=== PATIENT | male | born 1985 | race Caucasian/White ===

== ENCOUNTER 2018-08-03 08:16 | Inpatient (IN) | payer BC, MEDICAID, OTHER ==
[2018-08-03] VITALS (11 sets, daily range): BP systolic 126–192; BP diastolic 84–118
[~2018-08-03] VITALS: Ht 182.9 cm; Wt 107.8 kg
[2018-08-03] MEDS ORDERED: OXAZEPAM 15 MG CAP PO PRN (09:30)
[2018-08-03 09:53] LABS: ABG BASE EXCESS -19.4 (-2.0-2.0); ABG O2 SATURATION 98.1 % (95.0-99.0); ABG PARTIAL PRESSURE CO2 20.2 mmHg (35.0-45.0); ABG PARTIAL PRESSURE O2 105.2 mmHg (75.0-100.0); ABG STANDARD HCO3 10.9 MEQ/L (22.0-26.0); ABG TOTAL CO2 7.7 MEQ/L (22.0-29.0)
[2018-08-03] MEDS ORDERED: MULTIVITAMIN -ADULT INJECTION 10 ML, THIAMINE INJection 100 MG, FOLIC ACID 1 MG in NS 1... IV ONE (10:00)
[2018-08-03] MEDS ORDERED: NALBUPHINE HCL 10 MG/ML AMP (J2300) IV PRN (10:15)
[2018-08-03] MEDS ORDERED: NALOXONE INJ 0.4 MG/1 ML VIAL (J2310) IV PRN (10:15)
[2018-08-03] MEDS ORDERED: EPIDURAL/PCA KEYS XX PRN (10:15)
[2018-08-03] MEDS ORDERED: diphenhydrAMINE INJ 50MG/ML VIAL (J1200) IV PRN (10:15)
[2018-08-03 10:20] LABS: INR 1.07
[2018-08-03 10:21] LABS: PARTIAL THROMBOPLASTIN TIME 26.8 SECONDS (25.4-37.6)
[2018-08-03] MEDS: SODIUM BICARBONATE 325 MG TAB PO SCH ×4 (10:25→20:10)
[2018-08-03] MEDS ORDERED: MORPHINE 4 MG/ML 1ML VIAL/SYRINGE (J2270) IV ONE (10:30)
--- NOTE | 2018-08-03 10:32 | HPEPDOC ---
[facility] Medical History & Physical Date of Admission August 03, 2018 Attending Physician: DONATO COMER MD History and Physical CHIEF COMPLAINT: 2 day history of increasing abdominal pain HISTORY OF PRESENT ILLNESS: Patient is a 32-year-old white male, history of acute alcoholic pancreatitis, who presents to [facility] following transfer from [facility]'s emergency department which she presented to this morning at 0300 complaining of a 2 day history of increasing epigastric pain radiating to the back. He states that on the evening of 07/31/18 he consumed approximately 375 mL of vodka. The morning of 08/01/18 he began experiencing increasing epigastric pain with associated nausea and vomiting. Patient reports being unable to hold down food/water. He states that this pain feels similar to his previous episode of alcoholic acute pancreatitis which occurred approximately 6 years ago following consumption of a similar amount of vodka. He reports a prior history of daily alcohol abuse with significant reduction of the last 2 years drinking 34 evenings per week. At [facility], patient was given a 1 L bolus, Zofran for nausea and morphine 2 mg for pain. He was subsequently started on IV fluids at a rate of 125 miles per hour. His pain failed to improve and was given morphine IV push 4 mg. One half hour later, patient's pain remained present and he was given Dilantin 1 mg IVP. An abdominal CT was performed and indicated acute pancreatitis with peripancreatic free fluid. The pancreatic necrosis or pseudocyst. A CBC was performed and demonstrated an elevated white count of 19.3. CMP showed patient's glucose level being 293, potassium of 4.6 and anion gap of 31, AST/ALC of 36/71, total bilirubin of 0.8, and a lipase of 5958. Venous blood gas was performed which revealed a pH of 7.16 and a venous PCO2 of 21.3. Given patient's pancreatitis and superimposed metabolic acidosis, secondary to [facility] was contacted for transfer to higher level of care. Patient was accepted hospitalist team for further evaluation and management. PAST MEDICAL HISTORY: 1. History of Pancreatitis 6 years ago 2. Reports immunizations up to date PAST SURGICAL HISTORY: No surgical history SOCIAL HISTORY: Marital status: Single Tobacco use: every day tobacco cigarette smoker ETOH: Patient reports a history of daily ETOH use 2+ years ago. Reports current 3-4 times per week drinking to intoxication Illicit drug use: Occasional Marijuana use IV drug use: Denies history of IV drug use FAMILY HISTORY: Patient denies any penitent family history ALLERGIES: Please see below. REVIEW OF SYSTEMS: CONSTITUTIONAL: Denies history of fever, chills, night sweats, persistent/ongoing fatigue, or changes in weight HEENT: Denies headache, changes in vision, changes in hearing, difficulty swallowing CARDIOVASCULAR: No chest pain, discomfort, palpitations RESPIRATORY: Patient declined shortness of breath, history of cough/wheezing GASTROINTESTINAL: Patient reports persistent and increasing epigastric abdominal pain since 08/01/18. He reports nausea, vomiting and loss of appetite. He has been unable to keep food down because of this. His pain is increased with movement. He denies any difficulty stooling including diarrhea/constipation. He denies black or tarry school stools, hematemesis. He states that his symptoms are similar to when he was diagnosed with acute pancreatitis approximately 6 years ago after ranking a similar amount of vodka. GENITOURINARY: Denies any difficulty urinating SKIN: Denies any new rashes or changing/evolving skin lesions MUSCULOSKELETAL: Denies any muscle aches or pains, no difficulty ambulating NEUROLOGICAL: Denies headaches, dizziness, numbness or tingling in his hands or his feet PSYCHIATRIC: Patient denies any clinical history of depression/anxiety ENDOCRINE: Reports being diagnosed with diabetes 6 years ago following his last episode of acute pancreatitis. He states that he was started on metformin by his primary care provider and began 2 months of lifestyle modification, ultimately not requiring additional metformin use. HOME MEDICATIONS: Please see below. PHYSICAL EXAMINATION: VITAL SIGNS: Temperature 98.2, pulse 109, respiratory rate 20, blood pressure 144/88 (108), pulse oximetry 98% on room air. GENERAL APPEARANCE: Alert and oriented, appears to be visibly in discomfort but in no acute distress HEENT: Normocephalic, atraumatic, PERRLA, EOMI, sclera nonicteric, pharynx normal, Membranes dry CARDIOVASCULAR: Regular rate and rhythm, normal S1 and S2. No murmurs appreciated LUNGS: Fair air movement, clear to auscultation bilaterally ABDOMEN: Moderate tenderness in the epigastric region which radiates to the back. No guarding appreciated. No hepatosplenomegaly on exam EXTREMITIES: Able to move extremities equally and bilaterally, no limits in range of motion, no lower extremity edema or calf tenderness bilaterally NEUROLOGICAL: No focal neurologic deficits, no difficulty speaking or aphasia LABORATORY DATA: See below. [facility], patient had a blood gas, CBC with differential, CMP and lipase. Venous blood gas (08/03/18): Demonstrated a pH of 7.16, PCO2 21.3 CBC with differential (08/03/18): Demonstrated an elevated white count of 19.3 CMP (08/03/18): Glucose of 293, potassium of 4.6, anion gap of 31, AST/ALC of 36/71, total bilirubin of 0.8, lipase of 5958 IMAGING: Patient had an abdominal CT performed at [facility] (08/03/18): Acute pancreatitis with mild peripancreatic free fluid. No pancreatic necrosis or pseudocyst. Mild reactive thickening of the distal transverse colon and pericolonic fluid. Hepatic steatosis. ASSESSMENT: Patient is a 32-year-old white male who presents to [facility] via transfer from [facility] emergency department for higher level of care. Patient presented the morning of 08/03/18 at approximately 0300 complaining of epigastric pain and tenderness, radiates posteriorly, of 2 days' duration which began late Friday night after consuming 3.75 milliliters of vodka. In the emergency department, patient was found to have a lipase of approximately 6000, CT evidence of acute pancreatitis, white count of 19,000 and be in a metabolic acidosis with a pH of 7.16 and a CO2 of 10 via venous blood gas. PLAN: Acute pancreatitis likely secondary to alcohol abuse -Continue 2 L of IV saline bolus -Zofran IV for nausea -Morphine 4 mg IV Once, placement on Morphine drip for pain control -Clear liquid diet with plan to advance as tolerated History of ETOH abuse -Thiamine, folic acid and multivitamin supplementation -Serax 30 mg every 6 hours when necessary Leukocytosis -Procalcitonin level pending -Lactic acid level pending -Blood culture pending -U/A with culture pending Metabolic acidosis -Repeat arterial blood gas -Lactic acid, ammonia levels pending, r/o sepsis given patient's elevated white count -Sodium Bicarb ggt, at 250 mls/hr. Follow with serial BMPs, Magnesium level, and ionized calcium until levels normalize -PICC line insertion if bicarb cannot be run peripherally. -Sodium Bicarbonate 325 mg PO QID DAVI Hepatic steatosis -Bilirubin level from [facility] WNL, CMP pending to re-evaluate -PT/INR and PTT pending, denies recent Tylenol use. DVT PROPHYLAXIS Lovenox SubQ daily HOSPITALIST ATTENDING ADDENDUM: DR. COMER Hypertriglyceridemia: start on anti-hyperlipidemic agents. check apolipoprotein. Metabolic acidosis: no significant improvement despite iv bicarb gtt and po bicarb. defer to nephrology if further workup is warranted. Home Medications Scheduled Atorvastatin Calcium (Atorvastatin Calcium) 20 Mg Tablet, 40 MG PO QHS Blood Sugar Diagnostic (Advanced Glucose Test Strips) 1 Each Strip, 1 STRIP XX ASDIRECTED Fenofibrate,Micronized (Fenofibrate) 200 Mg Capsule, 200 MG PO DAILY Insulin Detemir (Levemir) 100 Unit/1 Ml Vial, 25 UNITS SC AMHS Insulin Human Lispro (Humalog) 100 Unit/1 Ml Vial, 0 UNITS SC AC 1 month supply As per in hospital sliding scale Insulin Human Lispro (Humalog) 100 Unit/1 Ml Vial, 0 UNITS SC QHS 1 month supply As per hospital sliding scale Allergies Coded Allergies: No Known Drug Allergies (Verified Allergy, Unknown, 08/03/18) A-FIB/CHADSVASC A-FIB History Current/History of A-Fib/PAF?: Yes GME ATTESTATION GME ATTESTATION My faculty preceptor for this patient encounter was physically present during the encounter and was fully available. All aspects of the patient interview, examination, medical decision making process, and medical care plan development were reviewed and approved by the faculty preceptor. The faculty preceptor is aware and concurs with the plan as stated in the body of this note and will attest to such by his/her cosignature. YOMAIRA CARMONA DO August 03, 2018 10:32 DONATO COMER MD August 03, 2018 16:19
[2018-08-03 10:55] LABS: BASO # 0.1 10^3/uL (0.0-0.2); BASO % 0.4 % (0.0-1.0); EOS % 0.2 % (0.0-3.0); HEMATOCRIT 43.5 % (42.0-52.0); HEMOGLOBIN 15.1 g/dl (13.5-17.5); LYMPH % 6.5 % (24.0-44.0); MEAN CORPUSCULAR HEMOGLOBIN 31.9 pg (27.0-33.0); MEAN CORPUSCULAR HGB CONC 34.7 g/dl (32.0-36.5); MEAN CORPUSCULAR VOLUME 91.8 fl (80.0-96.0); MONO # 1.6 10^3/uL (0.0-0.8); MONO % 10.9 % (0.0-5.0); NEUTROPHILS # 11.9 10^3/uL (1.8-7.7); PLATELET COUNT, AUTOMATED 162 10^3/uL (150-450); RED BLOOD COUNT 4.74 10^6/uL (4.30-6.10); WHITE BLOOD COUNT 14.6 10^3/uL (4.0-10.0)
[2018-08-03] MEDS: SODIUM BICARBONATE 150 MEQ in STERILE WATER LITER BAG 1,000 ML IV SCH ×2 (11:20→15:41)
[2018-08-03] MEDS: MORPHINE 1MG/ML IN 0.9% NACL 100ML IV BAG IV PRN (12:15)
[2018-08-03] MEDS: MULTIVITAMINS/MINERALS THERAP 1 TAB PO SCH (12:17)
[2018-08-03] MEDS: FOLIC ACID 1 MG TAB PO SCH (12:17)
[2018-08-03] MEDS: THIAMINE 100 MG TAB PO SCH (12:17)
[2018-08-03] MEDS: ENOXAPARIN 40 MG/0.4 ML SYRINGE (J1650) SC SCH (12:18)
[2018-08-03 12:33] LABS: ALBUMIN 3.4 GM/DL (3.2-5.2); ALT/SGPT 54 U/L (12-78); AMYLASE 634 U/L (25-115); BILIRUBIN,TOTAL 1.4 MG/DL (0.2-1.0); BLOOD UREA NITROGEN 6 MG/DL (7-18); CALCIUM LEVEL 7.3 MG/DL (8.5-10.1); CARBON DIOXIDE LEVEL 9 MEQ/L (21-32); CHLORIDE LEVEL 102 MEQ/L (98-107); CHOLESTEROL LEVEL 287 MG/DL (<200); CHOLESTEROL RISK RATIO 6.674 (<5); CK-MB VALUE MASS < 1.0 NG/ML (<3.6); CPK CREATINE PHOSPHOKINASE 121 U/L (39-308); CREATININE FOR GFR 0.86 MG/DL (0.70-1.30); GLOMERULAR FILTRATION RATE > 60.0 (>60); GLUCOSE, FASTING 281 MG/DL (70-100); HDL CHOLESTEROL 43 MG/DL (>40); LIPASE 5721 U/L (73-393); MAGNESIUM LEVEL 1.9 MG/DL (1.8-2.4); MB/CK RELATIVE INDEX 0.83 (< OR =4); NON-HDL-C 244 MG/DL; POTASSIUM SERUM 4.2 MEQ/L (3.5-5.1); SODIUM LEVEL 129 MEQ/L (136-145); TOTAL PROTEIN 7.7 GM/DL (6.4-8.2); TRIGLYCERIDES LEVEL 4615 MG/DL (<150); TROPONIN I < 0.02 NG/ML (< 0.10)
[2018-08-03] MEDS ORDERED: NS 1,000 ML IV SCH ×2 (14:03→20:12)
[2018-08-03 15:27] LABS: IONIZED CALCIUM 4.5 MG/DL (4.5-5.3)
[2018-08-03 15:30] LABS: ABG HCO3 7.1 MEQ/L (22.0-26.0); ABG O2 SATURATION 97.9 % (95.0-99.0); ABG PARTIAL PRESSURE O2 101.7 mmHg (75.0-100.0); ABG STANDARD HCO3 11.1 MEQ/L (22.0-26.0); ABG TOTAL CO2 7.7 MEQ/L (22.0-29.0)
[2018-08-03 15:31] LABS: ABG pH (ARTERIAL) 7.172 UNITS (7.350-7.450)
[2018-08-03 15:32] LABS: ABG PARTIAL PRESSURE CO2 19.9 mmHg (35.0-45.0)
[2018-08-03 15:55] LABS: BLOOD UREA NITROGEN 5 MG/DL (7-18); CARBON DIOXIDE LEVEL 10 MEQ/L (21-32); CHLORIDE LEVEL 99 MEQ/L (98-107); CREATININE FOR GFR 0.93 MG/DL (0.70-1.30); GLOMERULAR FILTRATION RATE > 60.0 (>60); GLUCOSE, FASTING 297 MG/DL (70-100); MAGNESIUM LEVEL 2.1 MG/DL (1.8-2.4); POTASSIUM SERUM 4.3 MEQ/L (3.5-5.1); SODIUM LEVEL 128 MEQ/L (136-145)
[2018-08-03] MEDS ORDERED: FENOFIBRATE 145 MG TAB (TRICOR) PO ONE (16:00)
[2018-08-03] MEDS: NIACIN 100 MG TAB PO SCH ×2 (16:34→20:10)
[2018-08-03 17:50] LABS: FREE THYROXINE INDEX 1.9 % (1.4-3.8); T UPTAKE 37 % (33-40); THYROXINE (T4) 5.1 UG/DL (4.5-12.0)
[2018-08-03] MEDS ORDERED: TAMSULOSIN 0.4 MG CAP PO ONE (18:00)
[2018-08-03 19:18] LABS: IONIZED CALCIUM 4.2 MG/DL (4.5-5.3)
[2018-08-03] MEDS: TAMSULOSIN 0.4 MG CAP PO SCH (20:10)
[2018-08-03] MEDS: ATORVASTATIN 20 MG TAB PO SCH (20:10)
[2018-08-03] MEDS ORDERED: SODIUM BICARBONATE 150 MEQ in STERILE WATER LITER BAG 1,000 ML IV SCH (20:11)
[2018-08-03 21:39] LABS: BLOOD UREA NITROGEN 6 MG/DL (7-18); CARBON DIOXIDE LEVEL 10 MEQ/L (21-32); CHLORIDE LEVEL 98 MEQ/L (98-107); CREATININE FOR GFR 1.03 MG/DL (0.70-1.30); GLOMERULAR FILTRATION RATE > 60.0 (>60); GLUCOSE, FASTING 261 MG/DL (70-100); MAGNESIUM LEVEL 1.9 MG/DL (1.8-2.4); POTASSIUM SERUM 4.8 MEQ/L (3.5-5.1); SODIUM LEVEL 128 MEQ/L (136-145)
[2018-08-03 22:35] LABS: BLOOD UREA NITROGEN 6 MG/DL (7-18); CALCIUM LEVEL 6.7 MG/DL (8.5-10.1); CARBON DIOXIDE LEVEL 10 MEQ/L (21-32); CHLORIDE LEVEL 98 MEQ/L (98-107); CREATININE FOR GFR 0.86 MG/DL (0.70-1.30); GLOMERULAR FILTRATION RATE > 60.0 (>60); GLUCOSE, FASTING 268 MG/DL (70-100); MAGNESIUM LEVEL 1.8 MG/DL (1.8-2.4); POTASSIUM SERUM 3.7 MEQ/L (3.5-5.1); SODIUM LEVEL 131 MEQ/L (136-145)
[2018-08-03] MEDS ORDERED: CALCIUM GLUCONATE 1,000 MG in D5W MINI-BAG PLUS 100 ML IV SCH (22:45)
[2018-08-03 23:00] LABS: ABG BASE EXCESS -16.6 (-2.0-2.0); ABG HCO3 8.3 MEQ/L (22.0-26.0); ABG O2 SATURATION 98.3 % (95.0-99.0); ABG PARTIAL PRESSURE O2 102.4 mmHg (75.0-100.0); ABG STANDARD HCO3 12.5 MEQ/L (22.0-26.0); ABG TOTAL CO2 8.9 MEQ/L (22.0-29.0)
[2018-08-03 23:01] LABS: ABG pH (ARTERIAL) 7.235 UNITS (7.350-7.450)
[2018-08-03] MEDS: ONDANSETRON 4MG/2ML VIAL (J2405) IV PRN (23:05)
[2018-08-03 23:11] LABS: HEMOGLOBIN A1c 11.8 %
[2018-08-03 23:29] LABS: IONIZED CALCIUM 3.9 MG/DL (4.5-5.3)
[2018-08-03] MEDS ORDERED: HumuLIN R (REGULAR) INSULIN (NovoLIN R) **100U/ML** PER UNIT IV SCH (23:45)
--- NOTE | 2018-08-03 23:46 | IPNPDOC ---
Date Seen The patient was seen on 08/03/18. Progress Note DKA, new onset per nephrology, metabolic acidosis will improve with treatment for DKA. Plan: transfer to ICU, insulin iv gtt until anion gap closes, a1c, diabetic teaching, consistent carbs diet, D51/2ns with bicarb . A-FIB/CHADSVASC A-FIB History Current/History of A-Fib/PAF?: No Current Oral Anticoagulant The: No VS, I&O, 24H, Fishbone Vital Signs/I&O Vital Signs Date Time Temp Pulse Resp B/P (MAP) Pulse Ox O2 Delivery O2 Flow Rate FiO2 08/03/18 23:16 132 134/90 08/03/18 19:20 98.3 20 98 Laboratory Data 24H LABS Laboratory Tests 2 08/03/18 09:31: Immature Granulocyte % (Auto) 1.0, White Blood Count 14.6H, Red Blood Count 4.74, Hemoglobin 15.1, Hematocrit 43.5, Mean Corpuscular Volume 91.8, Mean Corpuscular Hemoglobin 31.9, Mean Corpuscular Hemoglobin Concent 34.7, Red Cell Distribution Width 14.3, Platelet Count 162, Neutrophils (%) (Auto) 81.0H, Lymphocytes (%) (Auto) 6.5L, Monocytes (%) (Auto) 10.9H, Eosinophils (%) (Auto) 0.2, Basophils (%) (Auto) 0.4, Neutrophils # (Auto) 11.9H, Lymphocytes # (Auto) 1.0L, Monocytes # (Auto) 1.6H, Eosinophils # (Auto) 0.0, Basophils # (Auto) 0.1, Nucleated Red Blood Cells % (auto) 0.0, Blood Gas Bicarbonate Standard 10.9L, Arterial Blood pH 7.160*L, Arterial Blood Partial Pressure CO2 20.2L, Arterial Blood Partial Pressure O2 105.2H, Arterial Blood Total CO2 7.7L, Arterial Blood HCO3 7.0L, Arterial Blood Base Excess -19.4L, Arterial Blood Oxygen Saturation 98.1, Whole Blood Ionized Calcium 4.6, Ammonia 08/03/18 09:35: Prothrombin Time 14.0, Prothromb Time International Ratio 1.07, Activated Partial Thromboplast Time 26.8, Anion Gap 18H, Glomerular Filtration Rate > 60.0, Lactic Acid Level 1.7, Blood Urea Nitrogen 6L, Creatinine 0.86, Sodium Level 129L, Potassium Level 4.2, Chloride Level 102, Carbon Dioxide Level 9L, Calcium Level 7.3L, Aspartate Amino Transf (AST/SGOT) 38H, Alanine Aminotransferase (ALT/SGPT) 54, Total Creatine Kinase 121, Alkaline Phosphatase 99, Total Bilirubin 1.4H, Triglycerides Level 4615H, LDL Cholesterol , Total Protein 7.7, Albumin 3.4, Magnesium Level 1.9, Creatine Kinase MB < 1.0, Creatine Kinase MB Relative Index 0.83, Troponin I < 0.02, Albumin/Globulin Ratio 0.79L, Total Cholesterol 287H, Non-HDL Cholesterol (LDL + VLDL) 244, Total HDL Cholesterol 43, Cholesterol/HDL Ratio 6.674H, Amylase Level 634H, Lipase 5721H, Procalcitonin 0.12, Thyroid Stimulating Hormone (TSH) 6.430H 08/03/18 13:29: Urine Color YELLOW, Urine Appearance CLEAR, Urine pH 5.0, Urine Specific Brent 1.026, Urine Protein 2+H, Urine Glucose (UA) 3+H, Urine Ketones 2+H, Urine Blood 2+H, Urine Nitrite NEGATIVE, Urine Bilirubin NEGATIVE, Urine Urobilinogen 0.2, Urine Leukocyte Esterase NEGATIVE, Urine WBC (Auto) 1, Urine RBC (Auto) 4H, Urine Hyaline Casts (Auto) 0, Urine Bacteria (Auto) NEGATIVE, Urine Squamous Epithelial Cells 0, Urine Mucus (Auto) SMALL, Urine Sperm (Auto) 08/03/18 15:11: Blood Gas Bicarbonate Standard 11.1L, Arterial Blood pH 7.172*L, Arterial Blood Partial Pressure CO2 19.9*L, Arterial Blood Partial Pressure O2 101.7H, Arterial Blood Total CO2 7.7L, Arterial Blood HCO3 7.1L, Arterial Blood Base Excess - 19.0L, Arterial Blood Oxygen Saturation 97.9 08/03/18 15:17: Anion Gap 19H, Glomerular Filtration Rate > 60.0, Blood Urea Nitrogen 5L, Creatinine 0.93, Sodium Level 128L, Potassium Level 4.3, Chloride Level 99, Carbon Dioxide Level 10L, Calcium Level 6.0#L, Whole Blood Ionized Calcium 4.5, Magnesium Level 2.1, Thyroid Stimulating Hormone (TSH) 3.790H, Free Thyroxine Index 1.9, Thyroxine (T4) 5.1, Triiodothyronine (T3) Uptake 37 08/03/18 19:09: Anion Gap 20H, Glomerular Filtration Rate > 60.0, Blood Urea Nitrogen 6L, Creatinine 1.03, Sodium Level 128L, Potassium Level 4.8, Chloride Level 98, Carbon Dioxide Level 10L, Calcium Level 7.0#L, Whole Blood Ionized Calcium 4.2L, Magnesium Level 1.9 08/03/18 21:14: Anion Gap 23H, Glomerular Filtration Rate > 60.0, Blood Urea Nitrogen 6L, Creatinine 0.86, Sodium Level 131L, Potassium Level 3.7#, Chloride Level 98, Carbon Dioxide Level 10L, Calcium Level 6.7L, Whole Blood Ionized Calcium 4.0L, Magnesium Level 1.8 08/03/18 22:55: Blood Gas Bicarbonate Standard 12.5L, Arterial Blood pH 7.235*L, Arterial Blood Partial Pressure CO2 20.0L, Arterial Blood Partial Pressure O2 102.4H, Arterial Blood Total CO2 8.9L, Arterial Blood HCO3 8.3L, Arterial Blood Base Excess - 16.6L, Arterial Blood Oxygen Saturation 98.3 08/03/18 23:10: Estimated Mean Plasma Glucose 292H, Hemoglobin A1c 11.8, Osmolality 289, Whole Blood Ionized Calcium 3.9L CBC/BMP Laboratory Tests 08/03/18 09:31 Red Blood Count 4.74, Mean Corpuscular Volume 91.8, Mean Corpuscular Hemoglobin 31.9, Mean Corpuscular Hemoglobin Concent 34.7, Red Cell Distribution Width 14.3, Neutrophils (%) (Auto) 81.0 H, Lymphocytes (%) (Auto) 6.5 L, Monocytes (%) (Auto) 10.9 H, Eosinophils (%) (Auto) 0.2, Basophils (%) (Auto) 0.4, Neutrophils # (Auto) 11.9 H, Lymphocytes # (Auto) 1.0 L, Monocytes # (Auto) 1.6 H, Eosinophils # (Auto) 0.0, Basophils # (Auto) 0.1 08/03/18 09:35 Calcium Level 7.3 L, Aspartate Amino Transf (AST/SGOT) 38 H, Alanine Aminotransferase (ALT/SGPT) 54, Total Creatine Kinase 121, Alkaline Phosphatase 99, Total Bilirubin 1.4 H, Triglycerides Level 4615 H, LDL Cholesterol , Total Protein 7.7, Albumin 3.4 08/03/18 15:17 Calcium Level 6.0 #L 08/03/18 19:09 Calcium Level 7.0 #L 08/03/18 21:14 Calcium Level 6.7 L Microbiology Microbiology 08/03/18 Blood Culture, Received Pending 08/03/18 MRSA Screen, Received Pending DONATO COMER MD August 03, 2018 23:46
[2018-08-04] VITALS (12 sets, daily range): BP systolic 115–136; BP diastolic 57–98
--- NOTE | 2018-08-04 00:52 | REPVR ---
EXAM: CT Abdomen and Pelvis Without Contrast EXAM DATE/TIME: 08/03/2018 10:29 PM CLINICAL HISTORY: 32 years old, male; Abdominal pain; Epigastric; Additional info: Pancreatitis TECHNIQUE: Imaging protocol: Axial computed tomography images of the abdomen and pelvis without contrast. Coronal and sagittal reformatted images were created and reviewed. Radiation optimization: All CT scans at this facility use at least one of these dose optimization techniques: automated exposure control; mA and/or kV adjustment per patient size (includes targeted exams where dose is matched to clinical indication); or iterative reconstruction. COMPARISON: No relevant prior studies available. FINDINGS: Limitations: Examination is limited without IV contrast. Pleural space: Small left pleural effusion. ABDOMEN: Liver: Fatty infiltration of the liver. Gallbladder and bile ducts: Normal. No calcified stones. No ductal dilation. Pancreas: Pancreas is edematous. Evaluation of the pancreas is limited without IV contrast. Peripancreatic edema. Spleen: Normal. No splenomegaly. Adrenals: Normal. No mass. Kidneys and ureters: Normal. No hydronephrosis. Stomach and bowel: Diffuse thickening of the duodenum. No abnormal bowel dilatation. Negative for colonic diverticulitis. Appendix: Appendix is normal. Retroperitoneal space: Edema in the retroperitoneal spaces bilaterally. PELVIS: Bladder: Unremarkable as visualized. Reproductive: Prostate is normal in size. ABDOMEN and PELVIS: Intraperitoneal space: Mild ascites. Infiltration of the mesentery. No free air. Bones/joints: No acute fracture. No dislocation. Soft tissues: Unremarkable. Vasculature: Normal. No abdominal aortic aneurysm. Lymph nodes: Normal. No enlarged lymph nodes. IMPRESSION: 1. Peritoneal edema. Consistent with acute pancreatitis. 2. Diffuse thickening of the duodenum. Suspect reactive thickening. 3. Fatty infiltration of liver. 4. Small left pleural effusion. 5. Additional findings as describe. Electronically signed by: Hector Austin On 08/04/2018 00:51:58 AM
[2018-08-04] MEDS: KCL 20MEQ IN D5/0.45NS 1000ML 1,000 ML IV SCH ×4 (00:58→23:10)
[2018-08-04] MEDS ORDERED: CALCIUM GLUCONATE 1,000 MG in D5W MINI-BAG PLUS 100 ML IV ONE ×3 (01:00)
[2018-08-04] MEDS ORDERED: INSULIN HUMAN REGULAR 100 UNITS in NS 99 ML IV SCH (01:00)
[2018-08-04] MEDS: INSULIN HUMAN REGULAR 100 UNITS in NS 99 ML IV SCH ×2 (01:00→12:00)
[2018-08-04 02:13] LABS: BLOOD UREA NITROGEN 7 MG/DL (7-18); CALCIUM LEVEL 6.6 MG/DL (8.5-10.1); CARBON DIOXIDE LEVEL 10 MEQ/L (21-32); CHLORIDE LEVEL 94 MEQ/L (98-107); CREATININE FOR GFR 0.92 MG/DL (0.70-1.30); GLOMERULAR FILTRATION RATE > 60.0 (>60); GLUCOSE, FASTING 318 MG/DL (70-100); MAGNESIUM LEVEL 1.7 MG/DL (1.8-2.4); POTASSIUM SERUM 3.5 MEQ/L (3.5-5.1); SODIUM LEVEL 128 MEQ/L (136-145)
[2018-08-04 02:35] LABS: VENOUS HCO3 7.4 MEQ/L (23.0-27.0); VENOUS O2 SATURATION 99.9 % (60.0-80.0); VENOUS PARTIAL PRESSURE CO2 17.1 mmHg (38.0-50.0); VENOUS PARTIAL PRESSURE O2 216.8 mmHg (30.0-50.0); VENOUS PH 7.253 UNITS (7.330-7.430); VENOUS STANDARD HCO3 12.3 MEQ/L; VENOUS TOTAL CO2 7.9 MEQ/L (24.0-28.0)
[2018-08-04] MEDS: MORPHINE 1MG/ML IN 0.9% NACL 100ML IV BAG IV PRN (05:50)
[2018-08-04] MEDS: ONDANSETRON 4MG/2ML VIAL (J2405) IV PRN (05:59)
[2018-08-04] MEDS: INSULIN IV RATE CHANGE DOCUMENTATION ML/HR XX SCH ×8 (06:27→22:06)
[2018-08-04 06:43] LABS: MEAN CORPUSCULAR VOLUME 88.6 fl (80.0-96.0); PLATELET COUNT, AUTOMATED 180 10^3/uL (150-450); RED BLOOD COUNT 4.73 10^6/uL (4.30-6.10); WHITE BLOOD COUNT 8.3 10^3/uL (4.0-10.0)
[2018-08-04 06:45] LABS: VENOUS BASE EXCESS -12.8 (-2.0-2.0); VENOUS HCO3 11.5 MEQ/L (23.0-27.0); VENOUS O2 SATURATION 98.8 % (60.0-80.0); VENOUS PARTIAL PRESSURE CO2 24.1 mmHg (38.0-50.0); VENOUS PARTIAL PRESSURE O2 108.7 mmHg (30.0-50.0); VENOUS PH 7.297 UNITS (7.330-7.430); VENOUS STANDARD HCO3 14.8 MEQ/L; VENOUS TOTAL CO2 12.3 MEQ/L (24.0-28.0)
[2018-08-04 07:13] LABS: HEMATOCRIT 44.1 % (42.0-52.0); HEMOGLOBIN 15.1 g/dl (13.5-17.5); MEAN CORPUSCULAR HEMOGLOBIN 30.3 pg (27.0-33.0)
[2018-08-04 07:14] LABS: MEAN CORPUSCULAR HGB CONC 34.2 g/dl (32.0-36.5)
[2018-08-04 08:06] LABS: ALBUMIN 2.3 GM/DL (3.2-5.2); ALT/SGPT 42 U/L (12-78); BILIRUBIN,TOTAL 1.4 MG/DL (0.2-1.0); BLOOD UREA NITROGEN 7 MG/DL (7-18); CALCIUM LEVEL 6.5 MG/DL (8.5-10.1); CARBON DIOXIDE LEVEL 15 MEQ/L (21-32); CHLORIDE LEVEL 94 MEQ/L (98-107); CREATININE FOR GFR 1.07 MG/DL (0.70-1.30); GLOMERULAR FILTRATION RATE > 60.0 (>60); GLUCOSE, FASTING 342 MG/DL (70-100); POTASSIUM SERUM 3.8 MEQ/L (3.5-5.1); SODIUM LEVEL 126 MEQ/L (136-145)
[2018-08-04] MEDS: NIACIN 100 MG TAB PO SCH ×3 (08:07→20:24)
[2018-08-04] MEDS: THIAMINE 100 MG TAB PO SCH (08:08)
[2018-08-04] MEDS: MULTIVITAMINS/MINERALS THERAP 1 TAB PO SCH (08:08)
[2018-08-04] MEDS: FOLIC ACID 1 MG TAB PO SCH (08:08)
[2018-08-04] MEDS: ENOXAPARIN 40 MG/0.4 ML SYRINGE (J1650) SC SCH (08:08)
[2018-08-04] MEDS: FENOFIBRATE 145 MG TAB (TRICOR) PO SCH (08:12)
[2018-08-04 10:04] LABS: VENOUS BASE EXCESS -9.7 (-2.0-2.0); VENOUS HCO3 15.1 MEQ/L (23.0-27.0); VENOUS O2 SATURATION 97.9 % (60.0-80.0); VENOUS PARTIAL PRESSURE CO2 30.3 mmHg (38.0-50.0); VENOUS PARTIAL PRESSURE O2 90.7 mmHg (30.0-50.0); VENOUS PH 7.314 UNITS (7.330-7.430); VENOUS STANDARD HCO3 16.9 MEQ/L
[2018-08-04] MEDS: NS 1,000 ML IV SCH ×2 (10:20→20:23)
[2018-08-04 10:45] LABS: LIPASE 1517 U/L (73-393)
[2018-08-04 11:23] LABS: TRIGLYCERIDES LEVEL 1892 MG/DL (<150)
[2018-08-04 12:08] LABS: BLOOD UREA NITROGEN 7 MG/DL (7-18); CALCIUM LEVEL 7.4 MG/DL (8.5-10.1); CARBON DIOXIDE LEVEL 17 MEQ/L (21-32); CHLORIDE LEVEL 96 MEQ/L (98-107); CREATININE FOR GFR 1.06 MG/DL (0.70-1.30); GLOMERULAR FILTRATION RATE > 60.0 (>60); GLUCOSE, FASTING 261 MG/DL (70-100); PHOSPHORUS LEVEL 0.8 MG/DL (2.5-4.9); POTASSIUM SERUM 3.6 MEQ/L (3.5-5.1); SODIUM LEVEL 126 MEQ/L (136-145)
--- NOTE | 2018-08-04 13:37 | IPNPDOC ---
Text Note Date of Service The patient was seen on 08/04/18. NOTE DATE: 08/04/2018 SUBJECTIVE Mr. Echavarria was seen this morning at bedside. He is sitting upright in bed, answering questions appropriately. No acute events overnight. He complains of mild epigastric pain. Denies fever, chills, chest pain, shortness of breath, nausea, vomiting, changes to bowel or bladder habits. MEDICATIONS: (see below) ALLERGIES: (see below) OBJECTIVE PHYSICAL EXAM VITALS: (see below) GENERAL: Alert and oriented x3. No acute distress. HEENT: Normocephalic, atraumatic. PERRLA. Sclera nonicteric. Conjunctiva without injection. Mucous membranes moist. CARDIOVASCULAR: Regular rate and rhythm. No murmurs, rubs, or gallops. Normal S1 & S2. No JVD LUNGS: Clear to auscultation bilaterally. No wheezes, rhonchi, or rales. ABDOMEN: Soft, nondistended. Mild epigastric tenderness upon palpation. Normoactive bowel sounds EXTREMITIES: Without lower extremity edema. Dorsalis pedis pulse +2. NEURO: Mood and affect appropriate. Cranial nerves II-XII grossly intact. 5/5 muscle strength bilaterally. No sensory deficits. Reflexes equal throughout. LABS: (see below) ASSESSMENT This is a 32-year-old male who presented with acute epigastric pain found to have an elevated lipase and likely acute pancreatitis as evidenced on CT scan also a high anion gap metabolic acidosis likely DKA. PLAN Acute pancreatitis - possibly 2/2 alcohol abuse, possibly 2/2 hypertriglyceridemia - Patient presented with elevated lipase and acute pancreatitis evidenced on CT. Has history of ETOH abuse with recent vodka ingestion prior to onset of abdominal pain. Labs also revealed elevated triglycerides which could also be a cause of his acute pancreatitis. - Lipase trending down - Total bilirubin mildly elevated. Continue to trend. - Continue IV normal saline at 100mL/h and KCl/D5 at 150mL/h for appropriate volume resuscitation of 250-500mL/h to prevent pancreatic necrosis and ATN. - Continue IV insulin. Last anion gap was 13, down from 17. Consider d/c insulin drip when anion gap closes. However, patient has hypertriglyceridemia which may be a cause of his pancreatitis for which treatment is IV insulin. Will trend triglycerides. - Zofran IV prn for nausea - Morphine IV prn for pain control - Continue clear liquid diet. Advance as tolerated Metabolic acidosis - likely 2/2 DKA - Patient likely has untreated type 1 DM. A1c 11.8. Remote history of Metformin and insulin treatment 6 years ago with previous episode of pancreatitis. - Possibly present on admission - B-hydroxybutyrate and anion gap elevated. - Lactic acid WNL - VBG pH 7.314, up from 7.297. Continue to monitor blood gas - Continue to monitor electrolyte status with serial BMPs q4 hours until anion gap closes. - Continue IV fluid resuscitation and insulin drip - Anticipate transition to SQ insulin tonight Leukocytosis - Resolved. WBC 8.3 down from 14.6 - Procalcitonin WNL - Blood cultures showed no growth after 24 hours. Hypertriglyceridemia - Triglyceride level trending down - Will continue to trend Elevated transaminases - Mildly elevated AST. Likely secondary to ETOH abuse. Continue to monitor. History of ETOH abuse - Thiamine, folic acid and multivitamin supplementation - Serax 30 mg every 6 hours when necessary DVT prophylaxis - Lovenox SQ A-FIB/CHADSVASC A-FIB History Current/History of A-Fib/PAF?: No VS,Fishbone, I+O VS, Fishbone, I+O Laboratory Tests 08/03/18 15:17 Calcium Level 6.0 #L 08/03/18 19:09 Calcium Level 7.0 #L 08/03/18 21:14 Calcium Level 6.7 L 08/03/18 23:10 Calcium Level 6.6 L 08/04/18 06:32 Red Blood Count 4.73, Mean Corpuscular Volume 88.6, Mean Corpuscular Hemoglobin 30.3, Mean Corpuscular Hemoglobin Concent 34.2, Red Cell Distribution Width 15.0 H, Calcium Level 6.5 L, Aspartate Amino Transf (AST/SGOT) 55 H, Alanine Amino transferase (ALT/SGPT) 42, Alkaline Phosphatase 77, Total Bilirubin 1.4 H, Total Protein 6.0 #L, Albumin 2.3 #L 08/04/18 11:30 Calcium Level 7.4 L Vital Signs Date Time Temp Pulse Resp B/P (MAP) Pulse Ox O2 Delivery O2 Flow Rate FiO2 08/04/18 12:00 97.9 111 18 121/65 (83) 96 I&O- Last 24 Hours up to 6 AM 08/04/18 06:00 Intake Total 6870 ml Output Total 8750 ml Balance -1880 ml GME ATTESTATION GME ATTESTATION My faculty preceptor for this patient encounter was physically present during the encounter and was fully available. All aspects of the patient interview, exa mination, medical decision making process, and medical care plan development were reviewed and approved by the faculty preceptor. The faculty preceptor is aware and concurs with the plan as stated in the body of this note and will attest to such by his/her cosignature. ATTENDING NOTE I, Cuauhtemoc Almendarez, have both independently examined this patient as well as reviewed the documentation. I have discussed in detail with the resident the findings and plan of treatment as documented by the resident. I agree with their findings and treatment plan. I will continue to follow the patient and offer further guidance to the patients care as necessary during this hospital stay. YOANNA BARNETT August 04, 2018 13:37 KRISTOPHER PÉREZ DO August 04, 2018 18:46 CUAUHTEMOC ALMENDAREZ MD August 04, 2018 18:49
[2018-08-04 16:05] LABS: VENOUS BASE EXCESS -8.5 (-2.0-2.0); VENOUS HCO3 16.2 MEQ/L (23.0-27.0); VENOUS O2 SATURATION 93.1 % (60.0-80.0); VENOUS PARTIAL PRESSURE CO2 31.6 mmHg (38.0-50.0); VENOUS PARTIAL PRESSURE O2 59.9 mmHg (30.0-50.0); VENOUS PH 7.327 UNITS (7.330-7.430); VENOUS STANDARD HCO3 17.7 MEQ/L; VENOUS TOTAL CO2 17.1 MEQ/L (24.0-28.0); VENOUS VENT MODE V
[2018-08-04 17:08] LABS: BLOOD UREA NITROGEN 6 MG/DL (7-18); CALCIUM LEVEL 7.7 MG/DL (8.5-10.1); CARBON DIOXIDE LEVEL 18 MEQ/L (21-32); CHLORIDE LEVEL 97 MEQ/L (98-107); CREATININE FOR GFR 1.02 MG/DL (0.70-1.30); GLOMERULAR FILTRATION RATE > 60.0 (>60); GLUCOSE, FASTING 206 MG/DL (70-100); PHOSPHORUS LEVEL 0.7 MG/DL (2.5-4.9); POTASSIUM SERUM 3.3 MEQ/L (3.5-5.1); SODIUM LEVEL 127 MEQ/L (136-145)
[2018-08-04] MEDS ORDERED: POTASSIUM CHLORIDE 10 MEQ SR TABLET PO ONE ×3 (17:30→21:30)
[2018-08-04] MEDS ORDERED: POTASSIUM PHOSPHATE INJ 15 MMOL in D5W 250 ML IV ONE (18:00)
[2018-08-04] MEDS: NEUTRA-PHOS 1.5 GM PACKET PO SCH (18:11)
[2018-08-04] MEDS: guaiFENesin ER 600 MG TAB PO SCH (20:00)
[2018-08-04 20:02] LABS: VENOUS BASE EXCESS -6.7 (-2.0-2.0); VENOUS HCO3 17.8 MEQ/L (23.0-27.0); VENOUS O2 SATURATION 99.9 % (60.0-80.0); VENOUS PARTIAL PRESSURE CO2 32.9 mmHg (38.0-50.0); VENOUS PARTIAL PRESSURE O2 235.9 mmHg (30.0-50.0); VENOUS PH 7.351 UNITS (7.330-7.430); VENOUS STANDARD HCO3 19.1 MEQ/L; VENOUS TOTAL CO2 18.8 MEQ/L (24.0-28.0)
[2018-08-04] MEDS: ATORVASTATIN 20 MG TAB PO SCH (20:24)
[2018-08-04] MEDS: TAMSULOSIN 0.4 MG CAP PO SCH (20:27)
[2018-08-04 20:39] LABS: BLOOD UREA NITROGEN 5 MG/DL (7-18); CALCIUM LEVEL 7.5 MG/DL (8.5-10.1); CARBON DIOXIDE LEVEL 18 MEQ/L (21-32); CHLORIDE LEVEL 98 MEQ/L (98-107); GLOMERULAR FILTRATION RATE > 60.0 (>60); GLUCOSE, FASTING 207 MG/DL (70-100); MAGNESIUM LEVEL 1.9 MG/DL (1.8-2.4); PHOSPHORUS LEVEL 0.9 MG/DL (2.5-4.9); POTASSIUM SERUM 3.3 MEQ/L (3.5-5.1); SODIUM LEVEL 128 MEQ/L (136-145)
[2018-08-04] MEDS: KCL 40MEQ in NS 1000ML 1,000 ML IV SCH (22:20)
--- NOTE | 2018-08-04 22:49 | CR ---
DATE OF CONSULTATION: 08/04/2018 REQUESTING PHYSICIAN: Dr. Sonja Willson REASON FOR CONSULTATION: Management of refractory metabolic acidosis in this patient admitted with pancreatitis. HISTORY OF THE PRESENT ILLNESS: Jarvis Echavarria is previously unknown to me. He is a 32-year-old male with a past medical history of alcoholism and prior pancreatitis. He reports he was in his usual state of health up until 4 or 5 days ago when he started having pain typical of his pancreatitis attacks, which is epigastric in nature, radiating to the back. He also started having recurrent episodes of nausea and vomiting and inability to tolerate oral intake. He reports a prior history of some similar episodes and relates to me that he was previously diagnosed with diabetes, though he has not taken any antidiabetics in several years. He presented to the emergency room at [facility] where he was diagnosed with acute pancreatitis with peripancreatic free fluid on CT scan and a lipase of almost 6000. Blood work in the emergency room at [facility] showed severe anion gap metabolic acidosis, and patient was subsequently transferred to [facility] for higher level of care. Patient was accepted by the hospitalist team, and he was started on aggressive sodium bicarbonate drip. His admission bicarbonate was 9 milliequivalents here with ABG showing pH of 7.16. Despite aggressive sodium bicarbonate administration and several liters of bicarbonate containing fluid and adequate urine output, the patient failed to have any improvement in his anion gap metabolic acidosis. In fact, his acidemia worsened with his gap peaking at 24, and nephrology evaluation was requested for diagnosis and management of his acidosis. PAST MEDICAL HISTORY: Alcoholism. Prior alcoholic pancreatitis. History of diabetes mellitus, though no longer on antidiabetics for several years, per the patient. PAST SURGICAL HISTORY: He denies. ALLERGIES: He denies any drug allergies. SOCIAL HISTORY: The patient is single. He is a daily smoker. He reports regular use of alcohol and inebriation. He reports occasional marijuana use. He denies a history of intravenous (IV) drug use. FAMILY HISTORY: The patient denies family history of renal failure. HOME MEDICATIONS: None. REVIEW OF SYSTEMS: Constitutional: He denies fevers or chills. HEENT: He denies headache or changes in vision. Cardiovascular: He denies chest pain or palpitations. There is tachycardia. Respiratory: He denies shortness of breath, but he does note pain with deep inspiration. Gastrointestinal: He reports epigastric pain that radiates to the back. He reports nausea, vomiting, poor oral intake. He denies any stool changes or diarrhea. He reports a prior episode of pancreatitis. Genitourinary: He denies any dysuria or hematuria. Skin: He denies any new rashes or pruritus. Musculoskeletal: Denies any new myalgias or arthralgias. Neurologic: Denies seizure or syncope. Psychiatric: Denies history of depression. Endocrine: Patient reports a prior history of diabetes, though he is no longer on diabetic medications. He denies thyroid disorders. PHYSICAL EXAMINATION: Pulse 122, temperature 98.7, respiratory rate 20, blood pressure 118/60, saturating 99% on room air. Intake yesterday was 4.6 liters. Urine output yesterday was 5.6 liters. General: Patient is seen lying in bed. Young male, well developed, appears visibly in discomfort related to abdominal pain but otherwise no cardiorespiratory distress. Extraocular muscles are intact. Tongue is dry. Jugular veins are not elevated. Cardiac: Mild tachycardia. S1, S2. No murmurs. Lungs: Symmetric air entry. No crackles, rales, or rhonchi. Abdomen: Tenderness to palpation in the epigastric region to moderate touch. No guarding. There are bowel sounds. There is no suprapubic distended bladder appreciable. The lower extremities are negative for clubbing, cyanosis or edema. Neurologic: He is oriented. No focal deficits. Skin: Normal turgor and temperature. LABORATORY: Sodium on admission 129, potassium 4.2, creatinine 0.8, anion gap of 18 on admission, which increased to 24, bicarbonate on admission of 9, which only increased to 10, triglycerides 4600, lipase 5700. Urinalysis 2+ protein, 3+ glucose, 2+ ketones. Blood gas: ABG - pH 7.1, pCO2 20, pO2 105. IMAGING: CT scan of the abdomen and pelvis showed peritoneal edema consistent with acute pancreatitis. Pancreas is edematous. There is peripancreatic edema. Small left pleural effusion. INPATIENT MEDICATIONS: I discontinued the patient's bicarbonate drip, and I discussed with hospitalist team to start the patient on insulin drip. I also changed his fluids to D5 half normal saline (NS) with 20 mEq of KCl to run at 150 mL per hour. I discontinued the oral sodium bicarbonate, and I gave calcium gluconate supplementation. He is also receiving atorvastatin 40 mg by mouth nightly, Lovenox 40 mg subcu daily, Tricor 145 mg by mouth daily, folic acid 1 mg by mouth daily, morphine patient-controlled analgesic, multivitamin one tablet daily, niacin 100 mg by mouth three times a day, Zofran as needed, oxazepam as needed, Flomax 0.4 mg by mouth nightly and thiamine 100 mg by mouth daily. He has received a total of 5 liters of sodium bicarbonate fluids. PROBLEMS: 1. Severe anion gap metabolic acidosis in this patient who is admitted with pancreatitis and has a prior history of alcohol-induced pancreatitis in the past. Patient presented with a serum bicarbonate of only 9 and a pH of 7.16. Despite aggressive sodium bicarbonate administration (5 liters of sodium bicarbonate based IV fluids), he had absolutely no improvement in his anion gap metabolic acidosis. Repeat chemistry showed bicarbonate level that was persistently 10, and the patient's anion gap did rise from 18 to 24 during the initial part of his admission. I noted the appearance of ketones on his urinalysis. Given that the patient did deny any history of alcohol intake in the prior 3-4 days, I felt that this was less likely to be an alcoholic ketoacidosis and more likely to be a diabetic ketoacidosis despite the blood glucose levels that were only modestly elevated. I had the lab add on an A1c test, which did confirm the diagnosis and came back elevated at 11.8 percent. Subsequently, ketones were also drawn, and his beta-hydroxybutyrate was maximally elevated whereas his alcohol level was not detectable, confirming the diagnosis of diabetic ketoacidosis. I relayed the findings with Dr. Willson, and I discontinued the sodium bicarbonate fluids. The patient was appropriately transferred to the intensive care unit and started on a suitable regimen of insulin drip and D5 half NS with KCl along with normal saline for correction of his diabetic ketoacidosis. We will continue to follow VBGs serially along with serial BMPs to monitor his anion gap and to assess for further improvement in the acidosis. The patient has had a very atypical and rare presentation of diabetic ketoacidosis (DKA), but I am optimistic that he will improve with appropriate insulin infusion. I am discontinuing his diet and making him nothing by mouth (n.p.o.). 2. Hyponatremia. It is a pseudohyponatremia, and it is secondary to his lipemic serum and his triglycerides, which are in the 1000s (4600). No specific intervention for the pseudohyponatremia; it is expected to improve as his sugars and his triglycerides improve. 3. Hypocalcemia. It is secondary to the aggressive bicarbonate supplementation that he has received. We will continue monitoring the ionized calcium as his ketoacidosis is reversed, and we will continue to give calcium supplementation as needed. 4. Newly diagnosed diabetes. Patient does report a prior history of diabetes but has not taken antidiabetics in several years. He reports the prior use of antidiabetics was after an episode of previous pancreatitis as well. He has had a very atypical presentation of DKA. Continue with insulin drip for now and then would transition to subcutaneous insulin once his anion gap closes. Patient has not followed up with a primary care physician in several years and understands that he needs to do so from now on. 5. Acute pancreatitis with history of alcohol abuse and also with severely elevated triglycerides and DKA at present. Continue aggressive IV fluid hydration. Keep the patient nothing by mouth. Continue insulin drip. His lipase is down trending. His triglycerides are down trending as well. Pain control is as per primary team. Multiple electrolyte abnormalities are being monitored with serial labs. Critical care time spent in the management of this patient was 1 hour and 15 minutes. Case was discussed at length with Dr. Willson.
[2018-08-05] VITALS (8 sets, daily range): BP systolic 106–145; BP diastolic 62–89
[2018-08-05] MEDS: INSULIN IV RATE CHANGE DOCUMENTATION ML/HR XX SCH ×6 (00:22→08:35)
[2018-08-05 00:30] LABS: VENOUS BASE EXCESS -6.2 (-2.0-2.0); VENOUS HCO3 19.9 MEQ/L (23.0-27.0); VENOUS O2 SATURATION 92.2 % (60.0-80.0); VENOUS PARTIAL PRESSURE CO2 41.2 mmHg (38.0-50.0); VENOUS PARTIAL PRESSURE O2 58.8 mmHg (30.0-50.0); VENOUS PH 7.301 UNITS (7.330-7.430); VENOUS STANDARD HCO3 19.3 MEQ/L; VENOUS TOTAL CO2 21.1 MEQ/L (24.0-28.0)
[2018-08-05] MEDS: NEUTRA-PHOS 1.5 GM PACKET PO SCH ×5 (00:54→23:28)
[2018-08-05 01:02] LABS: BLOOD UREA NITROGEN 5 MG/DL (7-18); CALCIUM LEVEL 7.8 MG/DL (8.5-10.1); CARBON DIOXIDE LEVEL 20 MEQ/L (21-32); CHLORIDE LEVEL 99 MEQ/L (98-107); GLOMERULAR FILTRATION RATE > 60.0 (>60); GLUCOSE, FASTING 174 MG/DL (70-100); PHOSPHORUS LEVEL 0.7 MG/DL (2.5-4.9); POTASSIUM SERUM 3.4 MEQ/L (3.5-5.1); SODIUM LEVEL 129 MEQ/L (136-145)
[2018-08-05] MEDS ORDERED: DOCUSATE SODIUM 100 MG CAP PO ONE (03:45)
[2018-08-05] MEDS: MOM 30ML SUSPENSION UDC PO PRN (04:06)
[2018-08-05 04:13] LABS: VENOUS BASE EXCESS -6.9 (-2.0-2.0); VENOUS HCO3 17.3 MEQ/L (23.0-27.0); VENOUS O2 SATURATION 98.4 % (60.0-80.0); VENOUS PARTIAL PRESSURE CO2 31.4 mmHg (38.0-50.0); VENOUS STANDARD HCO3 18.9 MEQ/L; VENOUS TOTAL CO2 18.3 MEQ/L (24.0-28.0)
[2018-08-05 04:31] LABS: HEMATOCRIT 36.3 % (42.0-52.0); MEAN CORPUSCULAR HEMOGLOBIN 31.3 pg (27.0-33.0); MEAN CORPUSCULAR VOLUME 89.4 fl (80.0-96.0); PLATELET COUNT, AUTOMATED 136 10^3/uL (150-450); RED BLOOD COUNT 4.06 10^6/uL (4.30-6.10); WHITE BLOOD COUNT 8.1 10^3/uL (4.0-10.0)
[2018-08-05 04:38] LABS: HEMOGLOBIN 12.7 g/dl (13.5-17.5)
[2018-08-05 04:41] LABS: BLOOD UREA NITROGEN 4 MG/DL (7-18); CALCIUM LEVEL 7.2 MG/DL (8.5-10.1); CARBON DIOXIDE LEVEL 19 MEQ/L (21-32); CHLORIDE LEVEL 102 MEQ/L (98-107); CREATININE FOR GFR 0.71 MG/DL (0.70-1.30); GLOMERULAR FILTRATION RATE > 60.0 (>60); GLUCOSE, FASTING 185 MG/DL (70-100); MAGNESIUM LEVEL 1.9 MG/DL (1.8-2.4); PHOSPHORUS LEVEL 0.5 MG/DL (2.5-4.9); POTASSIUM SERUM 3.8 MEQ/L (3.5-5.1); SODIUM LEVEL 132 MEQ/L (136-145); TRIGLYCERIDES LEVEL 766 MG/DL (<150)
[2018-08-05] MEDS ORDERED: GLUCAGON FOR INJ 1 MG VIAL (J1610) SC PRN ×2 (05:00→09:30)
[2018-08-05] MEDS ORDERED: GLUCOSE 4 GM CHEW TABLET PO PRN ×2 (05:00→09:30)
[2018-08-05] MEDS ORDERED: DEXTROSE 50% 50 ML SYRINGE IV PRN ×2 (05:00→09:30)
[2018-08-05] MEDS: MORPHINE 1MG/ML IN 0.9% NACL 100ML IV BAG IV PRN (06:14)
[2018-08-05] MEDS: INSULIN HUMAN REGULAR 100 UNITS in NS 99 ML IV SCH (06:14)
[2018-08-05] MEDS: KCL 20MEQ IN D5/0.45NS 1000ML 1,000 ML IV SCH ×2 (06:26→08:27)
[2018-08-05 08:06] LABS: APOLIPOPROTEIN B/A-1 RATIO 1.4 ratio (0.0-0.7)
[2018-08-05] MEDS: NIACIN 100 MG TAB PO SCH ×3 (08:25→20:45)
[2018-08-05] MEDS: FOLIC ACID 1 MG TAB PO SCH (08:25)
[2018-08-05] MEDS: KCL 40MEQ in NS 1000ML 1,000 ML IV SCH (08:25)
[2018-08-05] MEDS: FENOFIBRATE 145 MG TAB (TRICOR) PO SCH (08:26)
[2018-08-05] MEDS: MULTIVITAMINS/MINERALS THERAP 1 TAB PO SCH (08:26)
[2018-08-05] MEDS: ENOXAPARIN 40 MG/0.4 ML SYRINGE (J1650) SC SCH (08:26)
[2018-08-05] MEDS: THIAMINE 100 MG TAB PO SCH (08:28)
[2018-08-05] MEDS: guaiFENesin ER 600 MG TAB PO SCH ×2 (08:28→20:45)
[2018-08-05 08:39] LABS: VENOUS HCO3 18.4 MEQ/L (23.0-27.0); VENOUS O2 SATURATION 81.5 % (60.0-80.0); VENOUS PARTIAL PRESSURE CO2 33.1 mmHg (38.0-50.0); VENOUS PARTIAL PRESSURE O2 39.4 mmHg (30.0-50.0); VENOUS PH 7.362 UNITS (7.330-7.430); VENOUS STANDARD HCO3 19.2 MEQ/L; VENOUS TOTAL CO2 19.4 MEQ/L (24.0-28.0)
[2018-08-05 09:13] LABS: BLOOD UREA NITROGEN 4 MG/DL (7-18); CALCIUM LEVEL 7.7 MG/DL (8.5-10.1); CARBON DIOXIDE LEVEL 21 MEQ/L (21-32); CHLORIDE LEVEL 102 MEQ/L (98-107); CREATININE FOR GFR 0.76 MG/DL (0.70-1.30); GLOMERULAR FILTRATION RATE > 60.0 (>60); GLUCOSE, FASTING 157 MG/DL (70-100); PHOSPHORUS LEVEL 0.6 MG/DL (2.5-4.9); POTASSIUM SERUM 3.6 MEQ/L (3.5-5.1); SODIUM LEVEL 134 MEQ/L (136-145)
[2018-08-05] MEDS: LEVEMIR (INSULIN DETEMIR) 1 UNITS/0.01ML SC SCH ×2 (09:53→20:47)
[2018-08-05] MEDS: HumaLOG INSULIN (NovoLOG) PER UNIT SC SCH ×3 (12:26→20:46)
--- NOTE | 2018-08-05 13:34 | IPNPDOC ---
Text Note Date of Service The patient was seen on 08/05/18. NOTE Nephrology Service: Subjective: Patient seen and examined at bedside. States he feels a bit better today. Admits to generalized abdominal discomfort in lower abdominal region, especially in R lower quadrant > L. Still feels weak. Had first meal today and ate some cheerios, drank some soda. Was not able to eat entire meal but this is a good start. Anion gap has closed and pH has normalized, Bicarb level is back to normal. Still has multiple electrolyte abnormalities. Patient was bridged to subcutaneous insulin levemir, and begun on an oral diet by primary team. His IV fluids were discontinued. Denies headaches, dizziness, blurred vision, fevers, chills, chest pain, SOB, nausea, vomiting, diarrhea, constipation. Had some loose stools earlier this AM. Objective: Vitals: T: 98.7 BP: 117/63 RR: 26 P: 106 O2 Saturation: 96% room air Weight: 113.5 kg Intake: 8970 ml Output: 5775 mL Balance: (+) 3195 ml General: AAO x 3. Sitting up on side of bed in NAD. Pleasant and cooperative adult male. Appears stated age. HEENT: Normocephalic, atraumatic. Sclera nonicteric. Neck: Supple. No JVD. Respiratory: Clear to auscultation bilaterally with no wheezes, rales, or rhonchi. Cardiovascular: (+)S1S2, regular rate and rhythm, with no murmurs, rubs or machado ps. Abdomen: Soft, nondistended, no hepatosplenomegaly appreciated. (+)Generalized tenderness to light palpation of entire abdomen as well as RLQ > LLQ. No rebound or guarding. Extremities: No clubbing, cyanosis, edema. Musculoskeletal: Normal ROM on inspection. Integumentary: No skin rashes or lesions noted. Neurological: No focal neurologic deficits appreciated bilaterally. Laboratory data: CBC: WBC 8.1, Hgb 12.7 (L), Platelets: 136 (L) BMP: Na 134 (L), K 3.6, CO2: 21, BUN 4 (L), Creatinine 0.76, GFR >60, Anion Gap: 11, Glucose: 157 (H), Calcium 7.7 (L), Phosphorus: 0.6 (L). POC Glucose at 12:07: 223 (H). VBG: pH: 7.362/pCO2: 33.1 (L)/pO2: 39.4. Microbiology: Blood Cx: NGTD x 48 hours. MRSA Screen Final: negative. Current Inpatient Medications: Potassium Phos/Sodium Phos (Neutra-Phos 1.5 gm Packet) 2 Pct q6H PO Fenofibrate 145 mg PO daily Regular Human Insulin 100 units/NaCl 100 mL @ 5 mLs/hr KCl/D5/NaCl 1000 mL @ 150 mLs/hr IV KCl/NaCl 1000 mL @ 100 mLs/hr Atorvastatin 40 mg PO QHS Niacin 100 mg PO TID New medications today: Levemir 25 units SC BID Humalog at AC and QHS No other major change in the medications today as compared with yesterday. Assessment/Plan: 1. Severe anion gap metabolic acidosis: Resolved. Anion gap closed at 11:30 AM yesterday and remained closed since then. Bicarb level WNL at 21 now. Primary team has bridged patient with subcutaneous insulin and started him on a carb consistent diet. He has started off slow and was able to take some cereal and soda in. We have stopped the IV fluids as we are transitioning him to an oral diet while he is coming off of the insulin drip now that the anion gap has closed. Rest of management as per primary team. I have personally communicated with the Primary Hospitalist Service/Team and ICU Nurse regarding the discontinuation of IVF. 2. Hyponatremia: Is Pseudohyponatremia secondary to hypertriglyceridemia. Triglycerides have trended down to 766 which is a significant improvement. Triglycerides will further normalize and come down as patient's pancreatitis and elevated sugars are treated and resolve. 3. Hypocalcemia: secondary to bicarbonate supplementation which has been aggressive. This should improve as ketoacidosis resolves. Recommendation to continue calcium supplementation PRN. 4. Newly diagnosed diabetes: Likely type 1. Patient did report a hx of diabetes in the past. Has not taken any diabetic medications for several years. Last use was after previous pancreatitis episode. Patient had a rare clinical presentation of DKA. Recommended for patient to establish with primary care after his discharge from hospital once he improves in order to coordinate his care and for regular monitoring of his diabetes. Patient verbalized understanding. 5. Acute pancreatitis with hx of EtOH abuse along with severely elevated triglycerides and DKA: DKA is almost resolved now with closed anion gap. Recommendation is to stop the IV fluids at present and to encourage aggressive oral hydration. Patient is now on a regular diet. Stop insulin drip once adalberto ent's gap remains closed after transitioning him to subcutaneous insulin for about 2 hours. Continue monitoring of triglycerides and these should downtrend as his pancreatitis is improved and once better glycemic control is achieved. Pain control as per primary team. 6. Multiple electrolyte abnormalities including Hypokalemia and Hypophosphatemia: Primary team is replenishing this and monitoring serial labs to trend. --Nephrology is signing off. Rest of management as per primary team. Please reconsult if needed. My preceptor for this patient encounter was Dr. Sharla Keys, and was ph ysically present in the building during the encounter and was fully available. As needed, all aspects of the patient interview, examination, medical decision making process, and medical care plan development were reviewed and approved by the preceptor. Preceptor is aware and concurs with the plan as stated in the body of this note and will attest to such by his/her cosignature. A-FIB/CHADSVASC A-FIB History Current/History of A-Fib/PAF?: No Current Oral Anticoagulant The: No VS,Fishbone, I+O VS, Fishbone, I+O Laboratory Tests 08/04/18 15:55 Calcium Level 7.7 L 08/04/18 19:52 Calcium Level 7.5 L 08/05/18 00:19 Calcium Level 7.8 L 08/05/18 03:56 Calcium Level 7.2 L, Red Blood Count 4.06 L, Mean Corpuscular Volume 89.4, Mean Corpuscular Hemoglobin 31.3, Mean Corpuscular Hemoglobin Concent 35.0, Red Cell Distribution Width 14.6 H 08/05/18 08:24 Calcium Level 7.7 L Vital Signs Date Time Temp Pulse Resp B/P (MAP) Pulse Ox O2 Delivery O2 Flow Rate FiO2 08/05/18 04:00 98.7 106 26 117/63 (81) 96 I&O- Last 24 Hours up to 6 AM 08/05/18 06:00 Intake Total 8875 ml Output Total 3975 ml Balance 4900 ml KAYLA MCKENZIE DO August 05, 2018 13:04
--- NOTE | 2018-08-05 14:05 | IPNPDOC ---
Text Note Date of Service The patient was seen on 08/05/18. NOTE DATE: 08/05/2018 SUBJECTIVE Mr. Echavarria was seen this morning at bedside. He is sitting upright in bed, answering questions appropriately. No acute events overnight. Reports his ep igastric pain has improved since yesterday. Though he does state he continues to have some mild, diffuse lower abdominal pain. This pain was relieved after having a bowel movement 2 nights ago. States he feels constipated and has been having difficulty with his bowel movements since. He reports that his appetite is returning. Denies fever, chills, chest pain, shortness of breath, nausea, vomiting, difficulty voiding. MEDICATIONS: (see below) ALLERGIES: (see below) OBJECTIVE PHYSICAL EXAM VITALS: (see below) GENERAL: Alert and oriented x3. No acute distress. HEENT: Normocephalic, atraumatic. PERRLA. Sclera nonicteric. Conjunctiva without injection. Mucous membranes moist. CARDIOVASCULAR: Regular rate and rhythm. No murmurs, rubs, or gallops. Normal S1 & S2. No JVD LUNGS: Clear to auscultation bilaterally. No wheezes, rhonchi, or rales. ABDOMEN: Soft, nondistended. No epigastric tenderness. Diffuse tenderness upon palpation of lower abdomen. No rebound tenderness or guarding. Normoactive bowel sounds EXTREMITIES: Without lower extremity edema. Dorsalis pedis pulse +2. NEURO: Mood and affect appropriate. Cranial nerves II-XII grossly intact. 5/5 muscle strength bilaterally. No sensory deficits. Reflexes equal throughout. LABS: (see below) ASSESSMENT This is a 32-year-old male who presented with acute epigastric pain found to have an elevated lipase and likely acute pancreatitis as evidenced on CT scan also a high anion gap metabolic acidosis likely DKA. PLAN Acute pancreatitis - possibly 2/2 alcohol abuse, possibly 2/2 hypert riglyceridemia - Patient presented with elevated lipase and acute pancreatitis evidenced on CT. Has history of ETOH abuse with recent vodka ingestion prior to onset of abdominal pain. Labs also revealed elevated triglycerides which could also be a cause of his acute pancreatitis. - Lipase trending down - Total bilirubin mildly elevated. Continue to trend. - D/c IV fluid resuscitation. Tolerating oral fluids - D/c IV insulin as patients triglycerides are approaching 500 and anion gap decreased to 11. Currently on 25 units of subcutaneous insulin with sliding scale coverage. - Zofran IV prn for nausea - Morphine IV prn for pain control - Begin consistent carbohydrate diet as tolerated - [facility] Metabolic acidosis - likely 2/2 DKA - Patient likely has untreated type 1 DM. A1c 11.8. Remote history of Metformin and insulin treatment 6 years ago with previous episode of pancreatitis. - Possibly present on admission - B-hydroxybutyrate elevated. - Anion gap closed - Lactic acid WNLN - Normal pH on last to VBG - D/c IV fluid resuscitation. Tolerating PO fluids - D/c insulin drip. Currently on 25 units SQ levemir and sliding scale insulin coverage Leukocytosis - Resolved. WBC 8.3 down from 14.6 - Procalcitonin WNL - Blood cultures showed no growth after 24 hours. Hypertriglyceridemia - Triglyceride level trending down. 766 this AM. - Will continue to trend - c/w Fenofibrate / Atorvastatin Elevated transaminases - Mildly elevated AST. Likely secondary to ETOH abuse. Continue to monitor. History of ETOH abuse - Thiamine, folic acid and multivitamin supplementation - Serax 30 mg every 6 hours when necessary DVT prophylaxis - Lovenox SQ A-FIB/CHADSVASC A-FIB History Current/History of A-Fib/PAF?: No VS,Fishbone, I+O VS, Fishbone, I+O Laboratory Tests 08/04/18 15:55 Calcium Level 7.7 L 08/04/18 19:52 Calcium Level 7.5 L 08/05/18 00:19 Calcium Level 7.8 L 08/05/18 03:56 Calcium Level 7.2 L, Red Blood Count 4.06 L, Mean Corpuscular Volume 89.4, Mean Corpuscular Hemoglobin 31.3, Mean Corpuscular Hemoglobin Concent 35.0, Red Cell Distribution Width 14.6 H 08/05/18 08:24 Calcium Level 7.7 L Vital Signs Date Time Temp Pulse Resp B/P (MAP) Pulse Ox O2 Delivery O2 Flow Rate FiO2 08/05/18 04:00 98.7 106 26 117/63 (81) 96 I&O- Last 24 Hours up to 6 AM 08/05/18 06:00 Intake Total 8875 ml Output Total 3975 ml Balance 4900 ml GME ATTESTATION GME ATTESTATION My faculty preceptor for this patient encounter was physically present during the encounter and was fully available. All aspects of the patient interview, examination, medical decision making process, and medical care plan development were reviewed and approved by the faculty preceptor. The faculty preceptor is aware and concurs with the plan as stated in the body of this note and will attest to such by his/her cosignature. ATTENDING NOTE I, Cuauhtemoc Vo, have both independently examined this patient, including my own physical exam, as well as reviewed the documentation and edited where necessary. I have discussed in detail with the resident the findings and plan of treatment as documented by the resident and edited their note. I agree with their findings and treatment plan. I will continue to follow the patient during this hospital stay. YOANNA BARNETT August 05, 2018 14:05 CUAUHTEMOC VO MD August 05, 2018 16:39
[2018-08-05] MEDS: ONDANSETRON 4MG/2ML VIAL (J2405) IV PRN (17:20)
[2018-08-05] MEDS ORDERED: NS 1,000 ML IV SCH (18:15)
--- NOTE | 2018-08-05 18:39 | IPNPDOC ---
Date Seen The patient was seen on 08/05/18. Progress Note SUBJECTIVE Patient was seen and examined this morning. There have been no acute events reported overnight. Patient states that his abdominal pain has improved although he does still admit to some mild abdominal pain. He has had a bowel movement. He states that he is hungry. He denies nausea or vomiting. MEDICATIONS: (see below) ALLERGIES: (see below) OBJECTIVE PHYSICAL EXAM VITALS: (see below) GENERAL: Alert and oriented x3. No acute distress. lying comfortably in bed HEENT: Normocephalic, atraumatic. Sclera nonicteric. Conjunctiva without injection. Mucous membranes moist. CARDIOVASCULAR: Regular rate and rhythm. No murmurs, rubs, or gallops. Normal S1 & S2. No JVD LUNGS: Clear to auscultation bilaterally. No wheezes, rhonchi, or rales. ABDOMEN: Soft, nondistended. No epigastric tenderness. Diffuse tenderness upon palpation of lower abdomen. No rebound tenderness or guarding. Normoactive bowel sounds EXTREMITIES: Without lower extremity edema. Dorsalis pedis pulse +2. NEURO: Mood and affect appropriate. Cranial nerves II-XII grossly intact. 5/5 muscle strength bilaterally. No sensory deficits. Reflexes equal throughout. LABS: (see below) ASSESSMENT This is a 32-year-old male who presented with acute epigastric pain found to have an elevated lipase and likely acute pancreatitis as evidenced on CT scan also a high anion gap metabolic acidosis likely DKA. PLAN Acute pancreatitis - possibly 2/2 alcohol abuse, possibly 2/2 h ypertriglyceridemia - Patient presented with elevated lipase and acute pancreatitis evidenced on CT. Has history of ETOH abuse with recent vodka ingestion prior to onset of abdominal pain. Labs also revealed elevated triglycerides which could also be a cause of his acute pancreatitis. - Lipase trending down - Total bilirubin mildly elevated. Continue to trend. - D/c IV fluid resuscitation. Tolerating oral fluids - D/c IV insulin as patients triglycerides are approaching 500 and anion gap decreased to 11. Currently on 25 units of subcutaneous insulin with sliding scale coverage. Will repeat triglycerides in AM. Patient will need outpatient followup and management of his hypertriglyceridemia - Zofran IV prn for nausea - Morphine IV prn for pain control - Begin consistent carbohydrate diet as tolerated - Transfer to [facility] Metabolic acidosis - likely 2/2 DKA - Patient likely has untreated type 1 DM. A1c 11.8. Remote history of Metformin and insulin treatment 6 years ago with previous episode of pancreatitis. - Possibly present on admission - B-hydroxybutyrate elevated. - Anion gap closed - Lactic acid WNLN - Normal pH on last to VBG - D/c IV fluid resuscitation. Tolerating PO fluids - D/c insulin drip. Currently on 25 units SQ levemir and sliding scale insulin coverage Leukocytosis - Resolved. WBC 8.3 down from 14.6 - Procalcitonin WNL - Blood cultures showed no growth after 24 hours. Hypertriglyceridemia - Triglyceride level trending down. 766 this AM. - Will continue to trend - c/w Fenofibrate / Atorvastatin Elevated transaminases - Mildly elevated AST. Likely secondary to ETOH abuse. Continue to monitor. History of ETOH abuse - Thiamine, folic acid and multivitamin supplementation - Serax 30 mg every 6 hours when necessary DVT prophylaxis - Lovenox SQ DISPOSITION: Patient will likely be discharged in 24-48 hours A-FIB/CHADSVASC A-FIB History Current/History of A-Fib/PAF?: No VS, I&O, 24H, [facility] Vital Signs/I&O Vital Signs Date Time Temp Pulse Resp B/P (MAP) Pulse Ox O2 Delivery O2 Flow Rate FiO2 08/05/18 04:00 98.7 106 26 117/63 (81) 96 I&O- Last 24 Hours up to 6 AM 08/05/18 06:00 Intake Total 8875 ml Output Total 3975 ml Balance 4900 ml Laboratory Data 24H LABS Laboratory Tests 2 08/04/18 19:04: Bedside Glucose (Misc Panel) 194H 08/04/18 19:52: Blood Gas Bicarbonate Standard 19.1, Venous Blood pH 7.351, Venous Blood Partial Pressure CO2 32.9L, Venous Blood Partial Pressure O2 235.9H, Venous Blood Total Carbon Dioxide 18.8L, Venous Blood HCO3 17.8L, Venous Blood Oxygen Saturation 99.9H, Venous Blood Base Excess -6.7L, Anion Gap 12, Glomerular Filtration Rate > 60.0, Blood Urea Nitrogen 5L, Creatinine 0.80, Sodium Level 128L, Potassium Level 3.3L, Chloride Level 98, Carbon Dioxide Level 18L, Calcium Level 7.5L, Phosphorus Level 0.9#L, Magnesium Level 1.9 08/04/18 20:05: Bedside Glucose (Misc Panel) 178H 08/04/18 21:02: Bedside Glucose (Misc Panel) 213H 08/04/18 22:05: Bedside Glucose (Misc Panel) 179H 08/04/18 23:05: Bedside Glucose (Misc Panel) 190H 08/05/18 00:18: Bedside Glucose (Misc Panel) 165H 08/05/18 00:19: Blood Gas Bicarbonate Standard 19.3, Venous Blood pH 7.301L, Venous Blood Partial Pressure CO2 41.2, Venous Blood Partial Pressure O2 58.8H, Venous Blood Total Carbon Dioxide 21.1L, Venous Blood HCO3 19.9L, Venous Blood Oxygen Saturation 92.2H, Venous Blood Base Excess -6.2L, Anion Gap 10, Glomerular Filtration Rate > 60.0, Blood Urea Nitrogen 5L, Creatinine 0.90, Sodium Level 129L, Potassium Level 3.4L, Chloride Level 99, Carbon Dioxide Level 20L, Calcium Level 7.8L, Phosphorus Level 0.7#L, Magnesium Level 2.0 08/05/18 00:57: Bedside Glucose (Misc Panel) 182H 08/05/18 02:08: Bedside Glucose (Misc Panel) 162H 08/05/18 03:16: Bedside Glucose (Misc Panel) 169H 08/05/18 03:55: Bedside Glucose (Misc Panel) 160H 08/05/18 03:56: Nucleated Red Blood Cells % (auto) 0.0, Blood Gas Bicarbonate Standard 18.9, Venous Blood pH 7.360, Venous Blood Partial Pressure CO2 31.4L, Venous Blood Partial Pressure O2 105.0H, Venous Blood Total Carbon Dioxide 18.3L, Venous Blood HCO3 17.3L, Venous Blood Oxygen Saturation 98.4H, Venous Blood Base Excess -6.9L, Anion Gap 11, Glomerular Filtration Rate > 60.0, Blood Urea Nitrogen 4L, Creatinine 0.71, Sodium Level 132L, Potassium Level 3.8, Chloride Level 102, Carbon Dioxide Level 19L, Calcium Level 7.2L, Phosphorus Level 0.5#L, Magnesium Level 1.9, Triglycerides Level 766H 08/05/18 05:08: Bedside Glucose (Misc Panel) 168H 08/05/18 06:17: Bedside Glucose (Misc Panel) 197H 08/05/18 07:00: Bedside Glucose (Misc Panel) 218H 08/05/18 08:24: Blood Gas Bicarbonate Standard 19.2, Venous Blood pH 7.362, Venous Blood Partial Pressure CO2 33.1L, Venous Blood Partial Pressure O2 39.4, Venous Blood Total Carbon Dioxide 19.4L, Venous Blood HCO3 18.4L, Venous Blood Oxygen Saturation 81.5H, Venous Blood Base Excess -6.0L, Anion Gap 11, Glomerular Filtration Rate > 60.0, Blood Urea Nitrogen 4L, Creatinine 0.76, Sodium Level 134L, Potassium Level 3.6, Chloride Level 102, Carbon Dioxide Level 21, Calcium Level 7.7L, Phosphorus Level 0.6L, Magnesium Level 2.0 08/05/18 08:32: Bedside Glucose (Misc Panel) 148H 08/05/18 09:45: Bedside Glucose (Misc Panel) 170H 08/05/18 12:07: Bedside Glucose (Misc Panel) 223H 08/05/18 17:01: Bedside Glucose (Misc Panel) 188H CBC/BMP Laboratory Tests 08/04/18 19:52 Calcium Level 7.5 L 08/05/18 00:19 Calcium Level 7.8 L 08/05/18 03:56 Calcium Level 7.2 L, Red Blood Count 4.06 L, Mean Corpuscular Volume 89.4, Mean Corpuscular Hemoglobin 31.3, Mean Corpuscular Hemoglobin Concent 35.0, Red Cell Distribution Width 14.6 H 08/05/18 08:24 Calcium Level 7.7 L Microbiology Microbiology 08/03/18 Blood Culture - Preliminary, Resulted No Growth after 48 hours. All Specime... 08/03/18 MRSA Screen - Final, Complete GME ATTESTATION GME ATTESTATION My faculty preceptor for this patient encounter was physically present during the encounter and was fully available. All aspects of the patient interview, examination, medical decision making process, and medical care plan development were reviewed and approved by the faculty preceptor. The faculty preceptor is aware and concurs with the plan as stated in the body of this note and will attest to such by his/her cosignature. ATTENDING NOTE I, Cuauhtemoc Vo, have both independently examined this patient as well as reviewed the documentation. I have discussed in detail with the resident the findings and plan of treatment as documented by the resident. I agree with their findings and treatment plan. I will continue to follow the patient and offer further guidance to the patients care as necessary during this hospital stay. KRISTOPHER PÉREZ DO August 05, 2018 18:39 CUAUHTEMOC VO MD August 06, 2018 14:28
[2018-08-05] MEDS: TAMSULOSIN 0.4 MG CAP PO SCH (20:45)
[2018-08-05] MEDS: ATORVASTATIN 20 MG TAB PO SCH (20:45)
[2018-08-06 02:00] VITALS: BP 120/68
[2018-08-06] MEDS: NEUTRA-PHOS 1.5 GM PACKET PO SCH ×4 (05:40→23:20)
[2018-08-06 06:00] VITALS: BP 145/93
[2018-08-06 06:07] LABS: HEMATOCRIT 32.7 % (42.0-52.0); HEMOGLOBIN 11.6 g/dl (13.5-17.5); MEAN CORPUSCULAR HEMOGLOBIN 31.9 pg (27.0-33.0); MEAN CORPUSCULAR HGB CONC 35.5 g/dl (32.0-36.5); MEAN CORPUSCULAR VOLUME 89.8 fl (80.0-96.0); PLATELET COUNT, AUTOMATED 178 10^3/uL (150-450); RED BLOOD COUNT 3.64 10^6/uL (4.30-6.10); WHITE BLOOD COUNT 10.3 10^3/uL (4.0-10.0)
[2018-08-06 06:40] LABS: BLOOD UREA NITROGEN 3 MG/DL (7-18); CALCIUM LEVEL 8.3 MG/DL (8.5-10.1); CARBON DIOXIDE LEVEL 24 MEQ/L (21-32); CHLORIDE LEVEL 101 MEQ/L (98-107); CREATININE FOR GFR 0.55 MG/DL (0.70-1.30); GLOMERULAR FILTRATION RATE > 60.0 (>60); GLUCOSE, FASTING 127 MG/DL (70-100); MAGNESIUM LEVEL 1.9 MG/DL (1.8-2.4); POTASSIUM SERUM 2.8 MEQ/L (3.5-5.1); SODIUM LEVEL 134 MEQ/L (136-145); TRIGLYCERIDES LEVEL 355 MG/DL (<150)
[2018-08-06] MEDS ORDERED: POTASSIUM CHLORIDE 10 MEQ SR TABLET PO ONE ×2 (08:00→12:00)
[2018-08-06] MEDS: FOLIC ACID 1 MG TAB PO SCH (08:37)
[2018-08-06] MEDS: THIAMINE 100 MG TAB PO SCH (08:37)
[2018-08-06] MEDS: MULTIVITAMINS/MINERALS THERAP 1 TAB PO SCH (08:37)
[2018-08-06] MEDS: NIACIN 100 MG TAB PO SCH ×3 (08:37→21:53)
[2018-08-06] MEDS: HumaLOG INSULIN (NovoLOG) PER UNIT SC SCH ×4 (08:38→21:00)
[2018-08-06] MEDS: ENOXAPARIN 40 MG/0.4 ML SYRINGE (J1650) SC SCH (08:38)
[2018-08-06] MEDS: LEVEMIR (INSULIN DETEMIR) 1 UNITS/0.01ML SC SCH ×2 (08:38→21:54)
[2018-08-06] MEDS: FENOFIBRATE 145 MG TAB (TRICOR) PO SCH (08:38)
[2018-08-06] MEDS: guaiFENesin ER 600 MG TAB PO SCH ×2 (08:40→21:00)
[2018-08-06] MEDS ORDERED: PERCOCET 5MG/325MG TAB PO PRN (10:00)
[2018-08-06 11:13] VITALS: BP 145/93
[2018-08-06 14:00] VITALS: BP 146/92
--- NOTE | 2018-08-06 16:29 | IPNPDOC ---
Date Seen The patient was seen on 08/06/18. Progress Note SUBJECTIVE: Patient was seen and examined this morning. He states that he is starting to feel better. He still has some pain in his lower abdomen but denies epigastric pain. He denies any nausea or vomiting. He does have an appetite and has been tolerating oral intake well. He does state that he has felt constipated OBJECTIVE PHYSICAL EXAMINATION: VITAL SIGNS: Please see below. GENERAL: Awake, alert, and oriented. He is lying in bed eating breakfast and appears in no acute distress HEENT: Atrumatic, normocephalic. eyes are nonicteric. Trachea is midline. CARDIOVASCULAR: Normal S1, S2. Regular rate and rhythm. No clicks, rubs, or murmurs RESPIRATORY: Clear vesicular breath sounds bilaterally. No wheezes, rhonci, or rales ABDOMINAL: Soft, nondistended. Nontender to palpation throughout. No rebound tenderness or guarding. Positive bowel sounds EXTREMITIES: No edema. Full and equal pulses in upper and lower extremities bilaterally NEUROLOGICAL: No focal neurological deficits PSYCHOLOGICAL: Mood and affect appropriate LABORATORY DATA, IMAGING STUDIES, MICROBIOLOGY: Please see below. ASSESSMENT AND PLAN: This is a 32-year-old male who presented with acute epigastric pain found to have an elevated lipase and likely acute pancreatitis as evidenced on CT scan also a high anion gap metabolic acidosis likely DKA. PLAN Acute pancreatitis - possibly 2/2 alcohol abuse, possibly 2/2 hypertriglyceridemia - Patient presented with elevated lipase and acute pancreatitis evidenced on CT. Has history of ETOH abuse with recent vodka ingestion prior to onset of abdominal pain. Labs also revealed elevated triglycerides which could also be a cause of his acute pancreatitis. -Patient has tolerated diet well. He is maintaining oral hydration. -Have switched to oral Percocet for pain Metabolic acidosis - likely 2/2 DKA - Patient likely has untreated type 1 DM. A1c 11.8. Remote history of Metformin and insulin treatment 6 years ago with previous episode of pancreatitis. - Possibly present on admission - B-hydroxybutyrate elevated. - Anion gap closed - Lactic acid WNLN -Resolved Hypokalemia -Monitor and replete PRN Leukocytosis - Resolved. WBC 8.3 down from 14.6 - Procalcitonin WNL - Blood cultures showed no growth after 72 hours. Hypertriglyceridemia - Triglyceride level trending down. 300s this AM. - Will continue to trend - c/w Fenofibrate / Atorvastatin Elevated transaminases - Mildly elevated AST. Likely secondary to ETOH abuse. Continue to monitor. History of ETOH abuse - Thiamine, folic acid and multivitamin supplementation - Serax 30 mg every 6 hours when necessary DVT prophylaxis - Lovenox SQ DISPOSITION: Patient will likely be discharged in 24-48 hours A-FIB/CHADSVASC A-FIB History Current/History of A-Fib/PAF?: No VS, I&O, 24H, [facility] Vital Signs/I&O Vital Signs Date Time Temp Pulse Resp B/P (MAP) Pulse Ox O2 Delivery O2 Flow Rate FiO2 08/06/18 14:00 98.1 96 18 146/92 (110) 95 I&O- Last 24 Hours up to 6 AM 08/06/18 06:00 Intake Total 4765 ml Output Total 3425 ml Balance 1340 ml Laboratory Data 24H LABS Laboratory Tests 2 08/05/18 17:01: Bedside Glucose (Misc Panel) 188H 08/05/18 20:19: Bedside Glucose (Misc Panel) 184H 08/06/18 05:26: Nucleated Red Blood Cells % (auto) 0.0, Anion Gap 9, Glomerular Filtration Rate > 60.0, Blood Urea Nitrogen 3L, Creatinine 0.55L, Sodium Level 134L, Potassium Level 2.8#*L, Chloride Level 101, Carbon Dioxide Level 24, Calcium Level 8.3L, Magnesium Level 1.9, Triglycerides Level 355H 08/06/18 11:39: Bedside Glucose (Misc Panel) 196H CBC/BMP Laboratory Tests 08/06/18 05:26 Red Blood Count 3.64 L, Mean Corpuscular Volume 89.8, Mean Corpuscular Hemoglobin 31.9, Mean Corpuscular Hemoglobin Concent 35.5, Red Cell Distribution Width 15.4 H, Calcium Level 8.3 L Microbiology Microbiology 08/03/18 Blood Culture - Preliminary, Resulted No Growth after 72 hours. All specime... 08/03/18 MRSA Screen - Final, Complete GME ATTESTATION GME ATTESTATION My faculty preceptor for this patient encounter was physically present during the encounter and was fully available. All aspects of the patient interview, examination, medical decision making process, and medical care plan development were reviewed and approved by the faculty preceptor. The faculty preceptor is aware and concurs with the plan as stated in the body of this note and will attest to such by his/her cosignature. ATTENDING NOTE I, Cuauhtemoc Vo, have both independently examined this patient as well as reviewed the documentation. I have discussed in detail with the resident the findings and plan of treatment as documented by the resident. I agree with their findings and treatment plan. I will continue to follow the patient and offer further guidance to the patients care as necessary during this hospital stay. KRISTOPHER PÉREZ DO August 06, 2018 16:29 CUAUHTEMOC VO MD August 06, 2018 16:34
[2018-08-06] MEDS: ACETAMINOPHEN TAB 650MG DOSE (2X325MG) PO PRN (18:41)
[2018-08-06] MEDS: ATORVASTATIN 20 MG TAB PO SCH (21:53)
[2018-08-06 22:00] VITALS: BP 131/83
[2018-08-07] MEDS: ACETAMINOPHEN TAB 650MG DOSE (2X325MG) PO PRN ×2 (01:31→20:51)
[2018-08-07] MEDS: MOM 30ML SUSPENSION UDC PO PRN ×2 (01:31→18:06)
[2018-08-07] MEDS: NEUTRA-PHOS 1.5 GM PACKET PO SCH ×4 (05:33→23:41)
[2018-08-07 05:58] LABS: HEMOGLOBIN 12.1 g/dl (13.5-17.5); MEAN CORPUSCULAR HEMOGLOBIN 30.7 pg (27.0-33.0); MEAN CORPUSCULAR HGB CONC 34.6 g/dl (32.0-36.5); MEAN CORPUSCULAR VOLUME 88.8 fl (80.0-96.0); PLATELET COUNT, AUTOMATED 219 10^3/uL (150-450); RED BLOOD COUNT 3.94 10^6/uL (4.30-6.10); WHITE BLOOD COUNT 9.7 10^3/uL (4.0-10.0)
[2018-08-07 06:00] VITALS: BP_SYST 131; BP_SYST 133; BP_DIAS 83; BP_DIAS 89
[2018-08-07 06:30] LABS: BLOOD UREA NITROGEN 5 MG/DL (7-18); CARBON DIOXIDE LEVEL 29 MEQ/L (21-32); CHLORIDE LEVEL 100 MEQ/L (98-107); CREATININE FOR GFR 0.55 MG/DL (0.70-1.30); GLOMERULAR FILTRATION RATE > 60.0 (>60); GLUCOSE, FASTING 153 MG/DL (70-100); MAGNESIUM LEVEL 2.2 MG/DL (1.8-2.4); POTASSIUM SERUM 3.2 MEQ/L (3.5-5.1); SODIUM LEVEL 138 MEQ/L (136-145)
[2018-08-07] MEDS: FOLIC ACID 1 MG TAB PO SCH (08:57)
[2018-08-07] MEDS: FENOFIBRATE 145 MG TAB (TRICOR) PO SCH (08:57)
[2018-08-07] MEDS: THIAMINE 100 MG TAB PO SCH (08:57)
[2018-08-07] MEDS: NIACIN 100 MG TAB PO SCH ×3 (08:57→20:42)
[2018-08-07] MEDS: POTASSIUM CHLORIDE 10 MEQ SR TABLET PO SCH (08:57)
[2018-08-07] MEDS: ENOXAPARIN 40 MG/0.4 ML SYRINGE (J1650) SC SCH (08:57)
[2018-08-07] MEDS: guaiFENesin ER 600 MG TAB PO SCH ×2 (08:57→20:43)
[2018-08-07] MEDS: MULTIVITAMINS/MINERALS THERAP 1 TAB PO SCH (08:57)
[2018-08-07] MEDS: HumaLOG INSULIN (NovoLOG) PER UNIT SC SCH ×4 (08:58→20:43)
[2018-08-07] MEDS: LEVEMIR (INSULIN DETEMIR) 1 UNITS/0.01ML SC SCH ×2 (08:58→20:43)
[2018-08-07 10:27] VITALS: BP 141/82
[2018-08-07] MEDS ORDERED: BLOOKIT21 XX (11:07)
[2018-08-07] MEDS ORDERED: INSU1MIS20 SC (11:07)
[2018-08-07] MEDS ORDERED: GLUC1TES2 XX (11:07)
[2018-08-07] MEDS ORDERED: LANC30MI XX (11:07)
[2018-08-07] MEDS ORDERED: ALCOPAD25 TOP (11:07)
[2018-08-07] MEDS ORDERED: INSUHUMDS SC ×2 (11:07)
[2018-08-07] MEDS ORDERED: ATOR1TAB21 PO (11:17)
[2018-08-07] MEDS ORDERED: INSUDET SC (11:17)
[2018-08-07] MEDS ORDERED: FENO145T13 PO (11:17)
[2018-08-07 14:00] VITALS: BP 150/90
--- NOTE | 2018-08-07 14:51 | DS.PDOC ---
Discharge Summary General Date of Admission August 03, 2018 at 08:16 Date of Discharge 08/08/18 Attending Physician: CUAUHTEMOC VO MD Discharge Summary PROCEDURES PERFORMED DURING STAY: [None]. ADMITTING DIAGNOSES: 1. Acute Pancreatitis 2. Hyperlipidemia 3. Diabetic Ketoacidosis in setting of newly diagnosed diabetes 4. Alcohol Dependence DISCHARGE DIAGNOSES: 1. Acute Pancreatitis 2. Hyperlipidemia 3. Diabetic Ketoacidosis in setting of newly diagnosed diabetes 4. Alcohol Dependence COMPLICATIONS/CHIEF COMPLAINT: Acute Pancreatitis. HISTORY OF PRESENT ILLNESS: Patient is a 32 year old with a past medical history significant for acute alcholic pancreatitis, alcohol dependence, and questionable diabetes who presented to the [facility] ER with complaint of two history of increasing epigastric pain radiating to the back. He had stated that on 07/31/18 he consumed approximate ly 375ml of vodka. The next morning he had developed increased epigastric pain and associated nausea and vomiting. Patient had stated that he had a similar feeling when he had alcoholic pancreatitis approximately 6 years ago. Patient had originally presented to [facility] where he was given IV fluid, Zofran, and morphine. Patient had continued pain. He had CT imaging which demonstrated acute pancreatitis with peripancreatic free fluid. He was also found to be in a gapped metabolic acidosis. Given the patients multiple medical issues he was transferred to [facility] HOSPITAL COURSE: Once admitted to the hospitalist service the patient received additional IV hydration. Regarding his metabolic acidosis, he was found to be in diabetic ketoacidosis. Nephrology was consulted and the patient was given Bicarbonate drip. He continued with fluid resuscitation. In addition, he was found to have hypertriglyceridemia of 4615. The patient was continued on insulin drip for his triglycerides and DKA. His DKA resolved and he was continued on the insulin drip until his triglycerides dropped to below 500. In the subsequent days, the patient had noticed improvement in his pain. He was able to tolerate a diet without pain, nausea, or vomiting. He did admit to some constipation and mild crampy lower abdominal pain. Once patient was discharged he was instructed to continue to take a statin and fenofibrate. He was counseled on alcohol cessation. Regarding his diabetes, the patient was placed on Levemir 25 units BID with sliding scale AC/HS coverage. The patient was instructed to follow-up with endocrinology and to establish with a PCP. DISCHARGE MEDICATIONS: Please see below. ALLERGIES: Please see below. PHYSICAL EXAMINATION ON DISCHARGE: VITAL SIGNS: Please see below. GENERAL: Awake, alert, and oriented. Appears in no acute distress. Lying comfortably in bed HEENT: Atruamtic normocephalic. Eyes are nonicteric. Trachea is midline. Mucous membranes are pink and moist NECK: No palpable cervical lymphadenopathy CARDIOVASCULAR EXAMINATION: Normal S1, S2. Regular rate and rhythm. No clicks rubs or murmurs RESPIRATORY EXAMINATION: Clear vesicular lung sounds bilaterally. No wheezes, rhonci, or rales. Good respiratory effort ABDOMINAL EXAMINATION: Soft, nondistended. Mild tenderness to palpation of left and right lower abdomen. No rebound tenderness or guarding. No epigastric tenderness. Positive bowel sounds EXTREMITIES: No edema. Full and equal pulses in bilateral upper and lower extremities SKIN: No rashes or lesions NEUROLOGICAL EXAMINATION: No focal neurological deficits PSYCHIATRIC EXAMINATION: Mood and affect appear appropriate LABORATORY DATA: Please see below. IMAGING: EXAM: CT Abdomen and Pelvis Without Contrast EXAM DATE/TIME: 08/03/2018 10:29 PM CLINICAL HISTORY: 32 years old, male; Abdominal pain; Epigastric; Additional info: Pancreatitis TECHNIQUE: Imaging protocol: Axial computed tomography images of the abdomen and pelvis without contrast. Coronal and sagittal reformatted images were created and reviewed. Radiation optimization: All CT scans at this facility use at least one of these dose optimization techniques: automated exposure control; mA and/or kV adjustment per patient size (includes targeted exams where dose is matched to clinical indication); or iterative reconstruction. COMPARISON: No relevant prior studies available. FINDINGS: Limitations: Examination is limited without IV contrast. Pleural space: Small left pleural effusion. ABDOMEN: Liver: Fatty infiltration of the liver. Gallbladder and bile ducts: Normal. No calcified stones. No ductal dilation. Pancreas: Pancreas is edematous. Evaluation of the pancreas is limited without IV contrast. Peripancreatic edema. Spleen: Normal. No splenomegaly. Adrenals: Normal. No mass. Kidneys and ureters: Normal. No hydronephrosis. Stomach and bowel: Diffuse thickening of the duodenum. No abnormal bowel dilatation. Negative for colonic diverticulitis. Appendix: Appendix is normal. Retroperitoneal space: Edema in the retroperitoneal spaces bilaterally. PELVIS: Bladder: Unremarkable as visualized. Reproductive: Prostate is normal in size. ABDOMEN and PELVIS: Intraperitoneal space: Mild ascites. Infiltration of the mesentery. No free air. Bones/joints: No acute fracture. No dislocation. Soft tissues: Unremarkable. Vasculature: Normal. No abdominal aortic aneurysm. Lymph nodes: Normal. No enlarged lymph nodes. IMPRESSION: 1. Peritoneal edema. Consistent with acute pancreatitis. 2. Diffuse thickening of the duodenum. Suspect reactive thickening. 3. Fatty infiltration of liver. 4. Small left pleural effusion. 5. Additional findings as describe. Electronically signed by: Hector Austin On 08/04/2018 00:51:58 AM PROGNOSIS: GOOD ACTIVITY: [As tolerated]. DIET: Low fat, Low triglyceride DISCHARGE PLAN: Patient is to be discharged home. He is to be seen by his primary care provider in 1-2 weeks. He is to be seen by his Project Intern in 1-2 weeks. He is to take Levemir 25 units in the morning and night for his diabetes. He is to take Humalog sliding scale before and after meals. He is to continue taking fenofibrate and his statin for his hypertriglyceridemia. He was provided counseling on alcohol addiction and informed of the walk-[facility] clinic [facility]. Remain compliant with treatment plan and medications Return to the ER if you experience any problems Disposition: Home with follow up DISCHARGE CONDITION: [Stable]. TIME SPENT ON DISCHARGE: Greater than 45 minutes. Vital Signs/I&Os Vital Signs Date Time Temp Pulse Resp B/P (MAP) Pulse Ox O2 Delivery O2 Flow Rate FiO2 08/07/18 14:00 97.9 71 18 150/90 (110) 97 I&O- Last 24 Hours up to 6 AM 08/07/18 06:00 Intake Total 2250 ml Output Total 3550 ml Balance -1300 ml Laboratory Data Labs 24H Laboratory Tests 2 08/06/18 17:07: Bedside Glucose (Misc Panel) 152H 08/06/18 20:44: Bedside Glucose (Misc Panel) 174H 08/07/18 05:28: Nucleated Red Blood Cells % (auto) 0.0, Anion Gap 9, Glomerular Filtration Rate > 60.0, Blood Urea Nitrogen 5#L, Creatinine 0.55L, Sodium Level 138, Potassium Level 3.2L, Chloride Level 100, Carbon Dioxide Level 29, Calcium Level 9.0, Magnesium Level 2.2 08/07/18 11:30: Bedside Glucose (Misc Panel) 197H CBC/BMP Laboratory Tests 08/07/18 05:28 Red Blood Count 3.94 L, Mean Corpuscular Volume 88.8, Mean Corpuscular Hemoglobin 30.7, Mean Corpuscular Hemoglobin Concent 34.6, Red Cell Distribution Width 15.5 H, Calcium Level 9.0 FSBS Laboratory Tests Test 08/06/18 17:07 08/06/18 20:44 08/07/18 11:30 Range/Units Bedside Glucose (Misc Panel) 152 174 197 70-105 MG/DL Microbiology Microbiology 08/03/18 Blood Culture - Preliminary, Resulted No Growth after 72 hours. All specime... 08/03/18 MRSA Screen - Final, Complete Discharge Medications Scheduled Atorvastatin Calcium (Atorvastatin Calcium) 20 Mg Tablet, 40 MG PO QHS Blood Sugar Diagnostic (Advanced Glucose Test Strips) 1 Each Strip, 1 STRIP XX ASDIRECTED Fenofibrate,Micronized (Fenofibrate) 200 Mg Capsule, 200 MG PO DAILY Insulin Detemir (Levemir) 100 Unit/1 Ml Vial, 25 UNITS SC AMHS Insulin Human Lispro (Humalog) 100 Unit/1 Ml Vial, 0 UNITS SC AC 1 month supply As per in hospital sliding scale Insulin Human Lispro (Humalog) 100 Unit/1 Ml Vial, 0 UNITS SC QHS 1 month supply As per hospital sliding scale Allergies Coded Allergies: No Known Drug Allergies (Verified Allergy, Unknown, 08/03/18) GME ATTESTATION GME ATTESTATION My faculty preceptor for this patient encounter was physically present during the encounter and was fully available. All aspects of the patient interview, examination, medical decision making process, and medical care plan development were reviewed and approved by the faculty preceptor. The faculty preceptor is aware and concurs with the plan as stated in the body of this note and will attest to such by his/her cosignature. ATTENDING NOTE I, Cuauhtemoc Vo, have both independently examined this patient as well as reviewed the documentation. I have discussed in detail with the resident the findings and plan of treatment as documented by the resident. I agree with their findings and treatment plan. I will continue to follow the patient and offer further guidance to the patients care as necessary during this hospital stay. Time spent on discharge 36 minutes - Confirmed with insurance that his Fenofibrate gets covered as an outpatient KRISTOPHER PÉREZ DO August 07, 2018 14:51 CUAUHTEMOC VO MD August 08, 2018 14:47
[2018-08-07 17:46] VITALS: BP 150/90
--- NOTE | 2018-08-07 18:07 | IPNPDOC ---
Date Seen The patient was seen on 08/07/18. Progress Note SUBJECTIVE: Patient was seen and examined this morning. He states that he is tolerating his diet well. He denies any epigastric pain, nausea, or vomiting. He states that he has some mild pain in his lower abdomen bilaterally. He states that he has been constipated however, after having a bowel movement his pain had gotten a little better. OBJECTIVE PHYSICAL EXAMINATION: VITAL SIGNS: Please see below. GENERAL: Awake, alert, and oriented. Appears in no acute distress. Lying comfortably in bed HEENT: Atruamtic normocephalic. Eyes are nonicteric. Trachea is midline. Mucous membranes are pink and moist NECK: No palpable cervical lymphadenopathy CARDIOVASCULAR EXAMINATION: Normal S1, S2. Regular rate and rhythm. No clicks rubs or murmurs RESPIRATORY EXAMINATION: Clear vesicular lung sounds bilaterally. No wheezes, rhonci, or rales. Good respiratory effort ABDOMINAL EXAMINATION: Soft, nondistended. Mild tenderness to palpation of left and right lower abdomen. No rebound tenderness or guarding. No epigastric tenderness. Positive bowel sounds EXTREMITIES: No edema. Full and equal pulses in bilateral upper and lower extremities SKIN: No rashes or lesions NEUROLOGICAL EXAMINATION: No focal neurological deficits PSYCHIATRIC EXAMINATION: Mood and affect appear appropriate LABORATORY DATA, IMAGING STUDIES, MICROBIOLOGY: Please see below.. DVT prophylaxis ordered?: YES ASSESSMENT AND PLAN: This is a 32-year-old male who presented with acute epigastric pain found to have an elevated lipase and likely acute pancreatitis as evidenced on CT scan also a high anion gap metabolic acidosis likely DKA. PLAN Acute pancreatitis - possibly 2/2 alcohol abuse, possibly 2/2 hypertriglyceridemia - Patient presented with elevated lipase and acute pancreatitis evidenced on CT. Has history of ETOH abuse with recent vodka ingestion prior to onset of abdominal pain. Labs also revealed elevated triglycerides which could also be a cause of his acute pancreatitis. -Patient has tolerated diet well. He is maintaining oral hydration. -Oral pain medication Metabolic acidosis - likely 2/2 DKA - Patient likely has untreated type 1 DM. A1c 11.8. Remote history of Metformin and insulin treatment 6 years ago with previous episode of pancreatitis. - Possibly present on admission - B-hydroxybutyrate elevated. - Anion gap closed - Lactic acid WNLN -Resolved Hypokalemia -Monitor and replete PRN Leukocytosis - Resolved. WBC 8.3 down from 14.6 - Procalcitonin WNL - Blood cultures showed no growth after 72 hours. Hypertriglyceridemia - Triglyceride level trending down. 300s this AM. - Will continue to trend - c/w Fenofibrate / Atorvastatin - attempting to ensure coverage as an outpatient with insurance Elevated transaminases - Mildly elevated AST. Likely secondary to ETOH abuse. Continue to monitor. History of ETOH abuse - Thiamine, folic acid and multivitamin supplementation - Serax 30 mg every 6 hours when necessary DVT prophylaxis - Lovenox SQ DISPOSITION: Patient is awaiting pre authorization of his fenofibrate. Likely D/C 24 hours A-FIB/CHADSVASC A-FIB History Current/History of A-Fib/PAF?: No VS, I&O, 24H, Fishbone Vital Signs/I&O Vital Signs Date Time Temp Pulse Resp B/P (MAP) Pulse Ox O2 Delivery O2 Flow Rate FiO2 08/07/18 17:46 82 150/90 08/07/18 14:00 97.9 18 97 I&O- Last 24 Hours up to 6 AM 08/07/18 06:00 Intake Total 2250 ml Output Total 3550 ml Balance -1300 ml Laboratory Data 24H LABS Laboratory Tests 2 08/06/18 20:44: Bedside Glucose (Misc Panel) 174H 08/07/18 05:28: Nucleated Red Blood Cells % (auto) 0.0, Anion Gap 9, Glomerular Filtration Rate > 60.0, Blood Urea Nitrogen 5#L, Creatinine 0.55L, Sodium Level 138, Potassium Level 3.2L, Chloride Level 100, Carbon Dioxide Level 29, Calcium Level 9.0, Magnesium Level 2.2 08/07/18 11:30: Bedside Glucose (Misc Panel) 197H 08/07/18 16:44: Bedside Glucose (Misc Panel) 191H CBC/BMP Laboratory Tests 08/07/18 05:28 Red Blood Count 3.94 L, Mean Corpuscular Volume 88.8, Mean Corpuscular Hemoglobin 30.7, Mean Corpuscular Hemoglobin Concent 34.6, Red Cell Distribution Width 15.5 H, Calcium Level 9.0 Microbiology Microbiology 08/03/18 Blood Culture - Preliminary, Resulted No Growth after 72 hours. All specime... 08/03/18 MRSA Screen - Final, Complete GME ATTESTATION GME ATTESTATION My faculty preceptor for this patient encounter was physically present during the encounter and was fully available. All aspects of the patient interview, examination, medical decision making process, and medical care plan development were reviewed and approved by the faculty preceptor. The faculty preceptor is aware and concurs with the plan as stated in the body of this note and will a ttest to such by his/her cosignature. ATTENDING NOTE I, Cuauhtemoc Vo, have both independently examined this patient as well as reviewed the documentation. I have discussed in detail with the resident the findings and plan of treatment as documented by the resident. I agree with their findings and treatment plan. I will continue to follow the patient and offer further guidance to the patients care as necessary during this hospital stay. KRISTOPHER PÉREZ DO August 07, 2018 18:07 CUAUHTEMOC VO MD August 08, 2018 07:37
[2018-08-07] MEDS: ATORVASTATIN 20 MG TAB PO SCH (20:42)
[2018-08-07 22:00] VITALS: BP 153/90
[2018-08-07] MEDS ORDERED: METAMUCIL (PSYLLIUM) PACKET PO PRN (23:30)
[2018-08-07] MEDS ORDERED: SIMETHICONE 80 MG CHEW TAB PO ONE (23:30)
[2018-08-07] MEDS ORDERED: MIRALAX *UNIT DOSE* 17GM PACKET PO PRN (23:30)
[2018-08-08] MEDS: NEUTRA-PHOS 1.5 GM PACKET PO SCH (05:33)
[2018-08-08 06:00] VITALS: BP 145/93
[2018-08-08 06:17] LABS: HEMATOCRIT 41.4 % (42.0-52.0); HEMOGLOBIN 13.9 g/dl (13.5-17.5); MEAN CORPUSCULAR HEMOGLOBIN 30.7 pg (27.0-33.0); MEAN CORPUSCULAR HGB CONC 33.6 g/dl (32.0-36.5); MEAN CORPUSCULAR VOLUME 91.4 fl (80.0-96.0); PLATELET COUNT, AUTOMATED 236 10^3/uL (150-450); RED BLOOD COUNT 4.53 10^6/uL (4.30-6.10); WHITE BLOOD COUNT 8.9 10^3/uL (4.0-10.0)
[2018-08-08 06:46] LABS: BLOOD UREA NITROGEN 6 MG/DL (7-18); CALCIUM LEVEL 8.4 MG/DL (8.5-10.1); CARBON DIOXIDE LEVEL 30 MEQ/L (21-32); CHLORIDE LEVEL 99 MEQ/L (98-107); CREATININE FOR GFR 0.63 MG/DL (0.70-1.30); GLOMERULAR FILTRATION RATE > 60.0 (>60); GLUCOSE, FASTING 169 MG/DL (70-100); MAGNESIUM LEVEL 2.3 MG/DL (1.8-2.4); POTASSIUM SERUM 3.7 MEQ/L (3.5-5.1); SODIUM LEVEL 138 MEQ/L (136-145)
[2018-08-08] MEDS: ENOXAPARIN 40 MG/0.4 ML SYRINGE (J1650) SC SCH (08:41)
[2018-08-08] MEDS: NIACIN 100 MG TAB PO SCH (08:42)
[2018-08-08] MEDS: THIAMINE 100 MG TAB PO SCH (08:42)
[2018-08-08] MEDS: MULTIVITAMINS/MINERALS THERAP 1 TAB PO SCH (08:42)
[2018-08-08] MEDS: FENOFIBRATE 145 MG TAB (TRICOR) PO SCH (08:42)
[2018-08-08] MEDS: LEVEMIR (INSULIN DETEMIR) 1 UNITS/0.01ML SC SCH (08:42)
[2018-08-08] MEDS: HumaLOG INSULIN (NovoLOG) PER UNIT SC SCH (08:42)
[2018-08-08] MEDS: FOLIC ACID 1 MG TAB PO SCH (08:42)
[2018-08-08] MEDS: guaiFENesin ER 600 MG TAB PO SCH (08:43)
[2018-08-08] MEDS: POTASSIUM CHLORIDE 10 MEQ SR TABLET PO SCH (08:43)
[2018-08-08] MEDS ORDERED: FENO200C PO (09:05)
== END 2018-08-08 11:10 | disposition home or self-care (01) | DRG 282 ==
LOC: M PCU 08:16 → M ICU 08-04 00:36 → M MSPAV 08-05 17:49
PROVIDERS: ADMIT Internal Medicine; ATTEND Internal Medicine
DX: K85.90 Acute pancreatitis without necrosis or infection, unspecified (principal); E11.10 Type 2 diabetes mellitus with ketoacidosis without coma; J90 Pleural effusion, not elsewhere classified; E87.2 Acidosis; E83.51 Hypocalcemia; K76.0 Fatty (change of) liver, not elsewhere classified; E87.1 Hypo-osmolality and hyponatremia; F10.20 Alcohol dependence, uncomplicated; E78.5 Hyperlipidemia, unspecified; Z79.899 Other long term (current) drug therapy; Z79.4 Long term (current) use of insulin

== ENCOUNTER → 2025-03-29 | Outpatient (CLI) | payer MEDICAID ==
[~2025-03-29] MED LIST: ALCOPAD25 TOP; ATOR1TAB21 PO; BLOOKIT21 XX; FENO145T7 PO; FENO200C24 PO; GLUC1TES2 XX; INSU1MIS20 SC; INSUDET SC; INSUHUMDS SC; LANC30MI XX
== END ==
LOC: M OUTALCOH 07:26
PROVIDERS: ATTEND Psychiatry & Neurology Psychiatry
DX: F10.20 Alcohol dependence, uncomplicated (principal); F12.20 Cannabis dependence, uncomplicated; F17.200 Nicotine dependence, unspecified, uncomplicated